=== PATIENT | female | born 1970 | race African-American/Black ===

== ENCOUNTER 2018-09-08 05:04 | Day surgery (SDC) | payer OTHER ==
[2018-09-06 15:17] VITALS: BMI 29.0
[2018-09-08] MEDS ORDERED: ACETAMINOPHEN 325 MG TABLET (FP) PO PRN (13:35)
[2018-09-08] MEDS ORDERED: IBUPROFEN 400 MG TABLET (FP) PO PRN (13:35)
[2018-09-08] MEDS ORDERED: oxyCODONE HCL 5 MG TABLET PO PRN ×2 (13:35→15:47)
[2018-09-08] MEDS ORDERED: ONDANSETRON 4 MG/2 ML VIAL IVPUSH PRN ×2 (13:36→15:47)
--- NOTE | 2018-09-08 13:38 | HP ---
Past Medical History - Admission History of Present Illness: 47 yo with hx/o menorrhagia, failed surgical management here for endometrial ablation - Advance Directives Advance Directives: Yes: Health Care Proxy - Smoking History Smoking history: Never smoked Aproximately how many cigarettes per day: 0 - Alcohol/Substance Use Hx Alcohol Use: No Home Medications - Allergies Allergies/Adverse Reactions: Allergies Allergy/AdvReac Type Severity Reaction Status Date / Time Penicillins Allergy "facial Verified 09/06/18 15:23 swelling" - Home Medications Home Medications: Ambulatory Orders Cyanocobalamin [Vitamin B12 -] 1,000 mcg PO DAILY 09/06/18 Labetalol HCl 100 mg PO BID 09/06/18 Lisinopril/Hydrochlorothiazide [Lisinopril-Hctz 20-25 mg Tab] 1 each PO DAILY Metformin HCl [Glucophage] 500 mg PO BID 09/06/18 Physical Exam - Maternity Vital Signs: Vital Signs Temperature 98.1 F 09/08/18 10:52 Pulse Rate 95 H 09/08/18 10:52 Respiratory Rate 18 09/08/18 10:52 Blood Pressure 155/99 09/08/18 10:52 O2 Sat by Pulse Oximetry (%) 100 09/08/18 10:52
[2018-09-08] MEDS ORDERED: SUCCINYLCHOLINE CHLORIDE 200 MG/10 ML VIAL ONE (13:49)
[2018-09-08] MEDS ORDERED: MIDAZOLAM HCL 2 MG/2 ML SINGLE DOSE VIAL ONE (13:49)
[2018-09-08] MEDS ORDERED: PROPOFOL 20 ML ONE (13:49)
[2018-09-08] MEDS ORDERED: DESFLURANE GAS 240 ML BOTTLE IH ONE (13:52)
[2018-09-08] MEDS ORDERED: DEXAMETHASONE SOD PHOSPHATE 4 MG/1 ML VIAL ONE (14:12)
--- NOTE | 2018-09-08 15:05 | HP ---
Admitting History and Physical - Admission History of Present Illness: 47 yo with history of menorrhagia, failed medical management, desiring surgical intervention. Limitations to Obtaining History: No Limitations - Past Medical History Cardiovascular: No: HTN Pulmonary: No: Asthma Gastrointestinal: No: GERD ...LMP: 08/27/18 Heme/Onc: Yes: Anemia, Sickle Cell Trait Endocrine: Yes: Diabetes Mellitus - Past Surgical History Additional Past Surgical History: delivery L shoulder surgery R knee surgery R bunionectomy and hammer toe repairs - Advance Directives Advance Directives: Yes: Health Care Proxy - Smoking History Smoking history: Never smoked Aproximately how many cigarettes per day: 0 - Alcohol/Substance Use Hx Alcohol Use: No - Social History History of Recent Travel: No Home Medications - Allergies Allergies/Adverse Reactions: Allergies Allergy/AdvReac Type Severity Reaction Status Date / Time Penicillins Allergy "facial Verified 09/06/18 15:23 swelling" - Home Medications Home Medications: Ambulatory Orders Cyanocobalamin [Vitamin B12 -] 1,000 mcg PO DAILY 09/06/18 Labetalol HCl 100 mg PO BID 09/06/18 Lisinopril/Hydrochlorothiazide [Lisinopril-Hctz 20-25 mg Tab] 1 each PO DAILY Metformin HCl [Glucophage] 500 mg PO BID 09/06/18 Family Disease History - Family Disease History Family History: Denies Review of Systems - Review of Systems Constitutional: reports: No Symptoms Neck: reports: No Symptoms Cardiovascular: reports: No Symptoms Gastrointestinal: reports: No Symptoms Genitourinary: reports: No Symptoms Musculoskeletal: reports: No Symptoms Endocrine: reports: No Symptoms Hematology/Lymphatic: reports: No Symptoms Psychiatric: reports: No Symptoms Physical Examination Vital Signs: Vital Signs Temperature 98.1 F 09/08/18 10:52 Pulse Rate 95 H 09/08/18 10:52 Respiratory Rate 18 09/08/18 10:52 Blood Pressure 155/99 09/08/18 10:52 O2 Sat by Pulse Oximetry (%) 100 09/08/18 10:52 Constitutional: Yes: Well Nourished, No Distress, Calm Cardiovascular: Yes: Regular Rate and Rhythm Respiratory: Yes: Regular, CTA Bilaterally Gastrointestinal: Yes: Normal Bowel Sounds, Soft Edema: No Neurological: Yes: Alert, Oriented Psychiatric: Yes: WNL Assessment/Plan 47 yo menorrhagia for surgical therapy 1. Consents reviewed and signed 2. preop labs reviewed 3. SCDs for DVT Prophylaxis 4. Will proceed to OR
[2018-09-08] MEDS ORDERED: DEXTROSE 50%-WATER - 25 GM/50 ML VIAL IVPUSH ONE (15:11)
[2018-09-08] MEDS ORDERED: DEXTROSE 50%-WATER 25 GM/50 ML DISP.SYRIN ONE (15:11)
--- NOTE | 2018-09-08 15:12 | OP ---
Operative Note - Note: Operative Date: 09/08/18 Pre-Operative Diagnosis: menorrhagia Operation: hysteroscopic hydrotherm ablation Findings: normal appearing endometrium, bilateral ostia identified; post-ablated endometrium at the end of procedure Post-Operative Diagnosis: Same as Pre-op Surgeon: Rosie Farooq Anesthesiologist/TECHNICAL CONSULTANT: Cleopatra Najera Estimated Blood Loss (mls): 2 Fluid Volume Replaced (mls): 1,000 Operative Report Dictated: Yes
[2018-09-08] MEDS ORDERED: LACTATED RINGERS SOLUTION 1,000 ML IV SCH (16:00)
--- NOTE | 2018-09-08 16:21 | OP ---
DATE OF OPERATION: 09/08/2018 ATTENDING PHYSICIAN: Walter Farooq MD PREOPERATIVE DIAGNOSIS: Menorrhagia. POSTOPERATIVE DIAGNOSIS: Menorrhagia. SURGERY: Hysteroscopic thermal ablation using Genesys HTA System. SURGEON: Walter Farooq MD ANESTHESIOLOGIST: Cleopatra Najera CRNA ESTIMATED BLOOD LOSS: 2 mL. INTRAVENOUS FLUID GIVEN: 1000. INDICATIONS: Patient is a 47-year-old with history of menorrhagia which failed medical therapy. She was counseled regarding medical and surgical therapy. She opted for surgical therapy. She was counseled regarding risks, benefits, alternatives, and complications of procedure including infection, bleeding, damage to surrounding organs such as bowel or bladder, uterine perforation or failure. She expressed understanding and was brought to the operating room. DESCRIPTION OF PROCEDURE: When anesthesia was found to be adequate, patient was prepped and draped in normal sterile fashion and placed in the dorsal lithotomy position using Vance stirrups. A weighted speculum was placed in the patient's vagina. Anterior vagina was retracted using a Davidson retractor. The anterior lip of the cervix was grasped using an Allis clamp. The cervix was gently dilated to accommodate a size 23 Tres dilator. The Genesys HTA System was inserted, and the uterus cavity and diagnostic hysteroscopy was performed. Normal appearing endometrium was noted. Bilateral ostia were identified. The Genesys HTA System was started, and ablation was initiated with direct visualization of the uterine cavity. No leaks were noted during the procedure. After cooldown period, a diagnostic hysteroscopy revealed adequately ablated endometrium. No leaks in the seal was noted. All instruments were removed from the patient's vagina. The patient was awoken from anesthesia, brought to recovery room in stable condition. WALTER FAROOQ M.D. [id number]
[2018-09-08] MEDS ORDERED: ONDANSETRON 4 MG/2 ML VIAL ONE (16:45)
[2018-09-08] MEDS: oxyCODONE HCL 5 MG TABLET PO PRN ×2 (17:15→17:55)
[2018-09-08] MEDS ORDERED: oxyCODONE HCL 5 MG TABLET ONE ×2 (17:16→17:52)
[2018-09-08 18:19] VITALS: BP 148/88; PULSE 79; TEMP 98.2
== END 2018-09-08 18:35 | disposition home or self-care (01) ==
LOC: JASU-SURG 05:04
PROVIDERS: ATTEND Obstetrics & Gynecology
PROC: 0U5B8ZZ Destruction of Endometrium, Via Natural or Artificial Opening Endoscopic (ICD-10-PCS; principal; 2018-09-08 13:00)
DX: N92.0 Excessive and frequent menstruation with regular cycle (principal); E11.9 Type 2 diabetes mellitus without complications; I10 Essential (primary) hypertension; D57.3 Sickle-cell trait; Z79.84 Long term (current) use of oral hypoglycemic drugs
CPT/HCPCS: 82962; 84703; 94760

== ENCOUNTER 2018-09-27 05:01 | Day surgery (SDC) | payer OTHER ==
[2018-09-24 08:32] VITALS: BMI 29.0
[2018-09-27] MEDS ORDERED: ACETAMINOPHEN 325 MG TABLET (FP) PO PRN (10:14)
[2018-09-27] MEDS ORDERED: IBUPROFEN 800 MG/8 ML IJ IVPB PRN ×2 (10:14→13:15)
--- NOTE | 2018-09-27 10:14 | HP ---
Admitting History and Physical - Admission History of Present Illness: 47 yo for permanent sterilization s/p recent HTA for menorrhagia Limitations to Obtaining History: No Limitations - Past Medical History Cardiovascular: Yes: HTN Pulmonary: No: Asthma Gastrointestinal: No: GERD ...LMP: 08/27/18 Heme/Onc: Yes: Anemia, Sickle Cell Trait Endocrine: Yes: Diabetes Mellitus - Past Surgical History Past Surgical History: Yes: (x3) Additional Past Surgical History: CD x 3 09/2018 - Endometrial ablation L shoulder surgery 06/2009 - R Knee arthroscopy R ft bunionectomy and hammer toe repair - Smoking History Smoking history: Never smoked Aproximately how many cigarettes per day: 0 - Alcohol/Substance Use Hx Alcohol Use: No - Social History History of Recent Travel: No Home Medications - Allergies Allergies/Adverse Reactions: Allergies Allergy/AdvReac Type Severity Reaction Status Date / Time Penicillins Allergy "facial Verified 09/27/18 10:03 swelling" - Home Medications Home Medications: Ambulatory Orders Cyanocobalamin [Vitamin B12 -] 1,000 mcg PO DAILY 09/06/18 Labetalol HCl 100 mg PO BID 09/06/18 Lisinopril/Hydrochlorothiazide [Lisinopril-Hctz 20-25 mg Tab] 1 each PO DAILY Metformin HCl [Glucophage] 500 mg PO BID 09/06/18 Family Disease History - Family Disease History Family History: Denies Review of Systems - Review of Systems Constitutional: reports: No Symptoms Cardiovascular: reports: No Symptoms Respiratory: reports: No Symptoms Gastrointestinal: reports: No Symptoms Breasts: reports: No Symptoms Reported Musculoskeletal: reports: No Symptoms Neurological: reports: No Symptoms Endocrine: reports: No Symptoms Psychiatric: reports: No Symptoms Physical Examination Vital Signs: Vital Signs Temperature 98.3 F 09/27/18 09:58 Pulse Rate 86 09/27/18 09:58 Respiratory Rate 18 09/27/18 09:58 Blood Pressure 147/89 09/27/18 09:58 O2 Sat by Pulse Oximetry (%) 99 09/27/18 10:01 Constitutional: Yes: Well Nourished, Calm Cardiovascular: Yes: Regular Rate and Rhythm Respiratory: Yes: Regular, CTA Bilaterally Gastrointestinal: Yes: Normal Bowel Sounds, Soft ...Rectal Exam: Yes: Deferred Musculoskeletal: Yes: WNL Extremities: Yes: WNL Integumentary: Yes: WNL Neurological: Yes: Alert, Oriented Assessment/Plan 47 yo for permanent sterilization 1. Consents reviewed and signed, risks including infection, bleeding, damage to surround organs such as bowel, bladder and ureterus discussed 2. SCDs for DVT Prophylaxis 3. Will proceed to OR
[2018-09-27] MEDS ORDERED: PROPOFOL 20 ML ONE ×2 (10:21)
[2018-09-27] MEDS ORDERED: MIDAZOLAM HCL 2 MG/2 ML SINGLE DOSE VIAL ONE (10:21)
[2018-09-27] MEDS ORDERED: BUPIVACAINE HCL/PF 0.5% (5MG/ML) 10 ML VIAL ONE (10:48)
[2018-09-27] MEDS ORDERED: ROCURONIUM BROMIDE 50 MG/5 ML VIAL ONE (11:20)
[2018-09-27] MEDS ORDERED: LIDOCAINE HCL/PF 2% SDV 5ML VIAL ONE (11:52)
[2018-09-27] MEDS ORDERED: CLINDAMYCIN 900 MG PREMIX BAG IVPB ONE (11:52)
[2018-09-27] MEDS ORDERED: CLINDAMYCIN PHOSPHATE 600 MG/4 ML VIAL ONE (11:52)
[2018-09-27] MEDS ORDERED: SUCCINYLCHOLINE CHLORIDE 200 MG/10 ML VIAL ONE (11:55)
[2018-09-27] MEDS ORDERED: NEOSTIGMINE METHYLSULFATE 0.5 MG/ML - 10 ML MDV ONE (12:32)
[2018-09-27] MEDS ORDERED: DEXAMETHASONE SOD PHOSPHATE 4 MG/1 ML VIAL ONE (12:33)
[2018-09-27] MEDS ORDERED: KETOROLAC TROMETHAMINE 30 MG/1 ML VIAL ONE (12:39)
--- NOTE | 2018-09-27 12:52 | OP ---
Operative Note - Note: Operative Date: 09/27/18 Pre-Operative Diagnosis: desiring permanent sterilization Operation: laparoscopic bilateral salpingectomy, lysis of extensive adhesions Findings: normal bilateral ovaries and fallopian tubes, severe dense adhesions from uterus , bilateral round ligaments, left ovary to anterior abdominal wall; adhesions of omentum to abdominal wall Post-Operative Diagnosis: Same as Pre-op Surgeon: Rosie Farooq Relay Record Clerk: Aravind Tapia Anesthesia: General Specimens Removed: bilateral fallopian tubes Estimated Blood Loss (mls): 2 Drains, Volume Out (mls): 240 (urine) Operative Report Dictated: Yes
[2018-09-27] MEDS ORDERED: oxyCODONE HCL 5 MG TABLET PO PRN ×2 (13:13)
[2018-09-27] MEDS ORDERED: ONDANSETRON 4 MG/2 ML VIAL IVPUSH PRN (13:13)
[2018-09-27] MEDS ORDERED: LACTATED RINGERS SOLUTION 1,000 ML IV SCH (13:15)
--- NOTE | 2018-09-27 14:03 | OP ---
DATE OF OPERATION: 09/27/2018 PREOPERATIVE DIAGNOSIS: Desiring permanent sterilization. POSTOPERATIVE DIAGNOSIS: Desiring permanent sterilization. SURGERY: Laparoscopic bilateral salpingectomy, lysis of adhesions. FINDINGS: Normal bilateral ovaries and fallopian tubes. Severe, dense adhesions in the uterus, bilateral round ligaments, and left ovary to anterior abdominal wall. Severe adhesions from omentum to anterior abdominal wall. SURGEON: Walter Burch MD CIVIL ENGINEERING PROJECT DESIGNER: Aravind Tapia MD ANESTHESIA: Dr. Camarena with general anesthesia. SPECIMENS REMOVED: Bilateral fallopian tubes. ESTIMATED BLOOD LOSS: 2 mL. URINE OUTPUT: 240 clear urine. INDICATIONS: The patient is a 47-year-old desiring permanent sterilization. She had a prior section x3. She desires surgical management. She was counseled regarding risks, benefits, alternatives, and complications of the procedure including infection, bleeding, damage surrounding organs such as the bowel, bladder, which is increased in her case given the history of multiple abdominal surgeries. She expressed understanding and was brought to the operating room. DESCRIPTION OF PROCEDURE: When anesthesia was found to be adequate, the patient was prepped and draped in the normal sterile fashion and placed in the dorsal lithotomy position using Vance stirrups. A weighted speculum was placed in the posterior vagina. The anterior vagina was retracted using a Davidson retractor. The anterior lip of the cervix was grasped using a single-tooth tenaculum. A HUMI uterine manipulator was placed in the intrauterine cavity. [place] was placed to gravity under sterile conditions. Attention was brought to the abdomen. A 5-mm incision was made into the umbilicus, and intraperitoneal placement was confirmed using a Veress needle. The abdomen was insufflated with carbon dioxide to an operating pressure of 15 mmHg. A 5-mm trocar was placed under direct visualization. Visualization of the abdominal cavity showed severe dense adhesions from the anterior abdominal wall to the uterus, bilateral fallopian tubes, the round ligaments, and right ovary. A 5-mm trocar was placed on the left lower quadrant under direct visualization. A 5-mm trocar was placed on the right lower quadrant under direct visualization. The left fallopian tube was identified, followed to fimbriated end. Adhesions were taken down using LigaSure. The left fallopian tube was transected using LigaSure and removed from the abdominal cavity and sent to Pathology. Attention was brought to the right fallopian tube. The ovary was freed from the anterior abdominal wall using the LigaSure, and the right fallopian tube was transected and ligated using LigaSure. This was removed from the abdominal cavity and brought to Pathology. Examination of all pedicles was found to be hemostatic. Irrigation was performed. The pneumoperitoneum was released. The pneumoperitoneum was released. The trocars were removed under direct visualization, and the skin was closed using Dermabond. All instruments were removed from the patient's abdomen. The patient tolerated the procedure well. Estimated blood loss 2 mL. The patient was brought to the recovery room in stable condition. WALTER CASTRO M.D. [id number]
[2018-09-27] MEDS ORDERED: ONDANSETRON 4 MG/2 ML VIAL ONE (14:29)
[2018-09-27 18:26] VITALS: BP 146/86; PULSE 82; TEMP 97.9
--- NOTE | 2018-09-30 11:41 | PATH ---
Surgical Pathology Report Patient Name: JENNA LAUREANO [facility]. Rec. #: [id number] /Age/Gender: 1970 (Age: 47) / F Account: [id number] Location: [facility] SUR[facility] Taken: 09/27/2018 Received: 09/28/2018 Reported: 09/30/2018 Physicians: Rosie Farooq Specimen(s) Received A: LEFT FALLOPIAN TUBE B: RIGHT FALLOPIAN TUBE Clinical History Encounter for sterilization Final Diagnosis A. LEFT FALLOPIAN TUBE, SALPINGECTOMY: FULL LUMINAL PORTION OF UNREMARKABLE FALLOPIAN TUBE, INCLUDING FIMBRIATED END. B. RIGHT FALLOPIAN TUBE, SALPINGECTOMY: FULL LUMINAL PORTION OF UNREMARKABLE FALLOPIAN TUBE, INCLUDING FIMBRIATED END. Electronically Signed Logan Vazquez M.D. Gross Description A. Received in formalin labeled "left fallopian tube," is a 5 cm in length fimbriated fallopian tube. The outer surface is hernandez-garcia and smooth. Sectioning reveals an unremarkable lumen. Loan Originator sections are submitted in 2 cassettes as follows: 1-fimbria; 2-cross sections of fallopian tube. B. Received in formalin labeled "right fallopian tube," are 2 portions of fallopian tube measuring 1.0 and 2.0 cm in length. The shorter portion displays attached fimbria. The outer surfaces are hernandez-garcia and smooth. Sectioning reveals unremarkable lumen. Loan Originator sections are submitted in 2 cassettes as follows: 1-fimbria; 2-cross sections of fallopian tube. /09/29/2018 saudi09/29/2018
== END 2018-09-27 17:35 | disposition home or self-care (01) ==
LOC: JASU-SURG 05:01
PROVIDERS: ATTEND Obstetrics & Gynecology
PROC: 0U574ZZ Destruction of Bilateral Fallopian Tubes, Percutaneous Endoscopic Approach (ICD-10-PCS; 2018-09-27)
PROC: 0DNW4ZZ Release Peritoneum, Percutaneous Endoscopic Approach (ICD-10-PCS; principal; 2018-09-27 10:30)
DX: Z30.2 Encounter for sterilization (principal); N73.6 Female pelvic peritoneal adhesions (postinfective); E11.9 Type 2 diabetes mellitus without complications; Z79.84 Long term (current) use of oral hypoglycemic drugs; I10 Essential (primary) hypertension; D64.9 Anemia, unspecified; E66.9 Obesity, unspecified
CPT/HCPCS: 36415; 82962; 84703; 86850; 86900; 86901; 88302-TC; 94760

== ENCOUNTER 2018-10-04 15:46 | Inpatient (IN) | payer OTHER ==
--- NOTE | 2018-10-04 16:07 | PDOC ---
History of Present Illness - General Chief Complaint: Nausea/Vomiting Stated Complaint: Nausea/Vomiting/PAIN Time Seen by Provider: 10/04/18 16:07 - History of Present Illness Initial Comments: 10/04/18 17:20 47f with pmh of hysteroscopic hydrotherm ablation and bilateral salpingectomy on 09/27/18 presents with fever, LRQ pain and mutiple episodes of non-bloody, watery diarrhea since 1am this morning, last one at 6am. She went to Dr. Farooq's office earlier today and got a pelvic exam that was negative. No hungry, didn't eat anything all day. Started feeling ill 3 days ago. She denies recent chest pain or shortness of breath. Past History - Past Medical History Allergies/Adverse Reactions: Allergies Allergy/AdvReac Type Severity Reaction Status Date / Time Penicillins Allergy "facial Verified 10/04/18 16:05 swelling" Home Medications: Ambulatory Orders Cyanocobalamin [Vitamin B12 -] 1,000 mcg PO DAILY 09/06/18 Labetalol HCl 100 mg PO BID 09/06/18 Lisinopril/Hydrochlorothiazide [Lisinopril-Hctz 20-25 mg Tab] 1 each PO DAILY Metformin HCl [Glucophage] 500 mg PO BID 09/06/18 Oxycodone HCl/Acetaminophen [Percocet 5-325 mg Tablet] 1 tab PO Q6H #5 tablet MDD 4 09/27/18 Anemia: Yes Asthma: No Cancer: No Cardiac Disorders: No CVA: No COPD: No CHF: No Dementia: No Diabetes: Yes GI Disorders: No Disorders: No HTN: Yes Hypercholesterolemia: No Liver Disease: No Seizures: No Thyroid Disease: No - Family Disease History Family Disease History: Diabetes: Father - Suicide/Smoking/Psychosocial Hx Smoking Status: No Smoking History: Never smoked Number of Cigarettes Smoked Daily: 0 Hx Alcohol Use: No Drug/Substance Use Hx: No Substance Use Type: None Hx Substance Use Treatment: No Review of Systems - Review of Systems Able to Perform ROS?: Yes Is the patient limited Turkmen proficient: No Constitutional: Yes: Chills, Fever, Loss of Appetite HEENTM: No: Symptoms Reported Respiratory: No: Symptoms reported Cardiac (ROS): No: Symptoms Reported ABD/GI: Yes: See HPI : No: Symptoms Reported Musculoskeletal: No: Symptoms Reported Integumentary: No: Symptoms Reported Neurological: No: Symptoms reported All Other Systems: Reviewed and Negative *Physical Exam - Physical Exam General Appearance: Yes: Nourished, Appropriately Dressed. No: Apparent Distress HEENT: positive: EOMI, HIEU, Normal ENT Inspection Respiratory/Chest: positive: Lungs Clear, Normal Breath Sounds. negative: Chest Tender, Respiratory Distress Cardiovascular: positive: Regular Rhythm, Regular Rate, S1, S2 Gastrointestinal/Abdominal: positive: Normal Bowel Sounds, Tender (lrq, ), Other (positive psoas and obturator signs. ). negative: Distended, Guarding, Rebound Musculoskeletal: positive: Normal Inspection Extremity: positive: Normal Capillary Refill, Normal Inspection, Normal Range of Motion Integumentary: positive: Normal Color, Dry, Warm, Diaphoresis Neurologic: positive: Fully Oriented, Alert, Normal Mood/Affect, Normal Response , Motor Strength / ED Treatment Course - LABORATORY CBC & Chemistry Diagram: 10/04/18 17:00 10/04/18 16:24 Medical Decision Making - Medical Decision Making 10/04/18 17:32 47 s/p pelvic surgery 1 week ago presenting with fever, diarrhea and LRQ pain SBO vs appendicitis vs intraabdominal abscess. Will treat fever with tylenol and fluids, obtain labs including lactate for possible obstruciton and Ct scan abdomen/pelvis with po and IV contrast 10/04/18 18:[address] read. Patient signed out to Dr. Stevenson. *DC/Admit/Observation/Transfer Diagnosis at time of Disposition: Fever, Abdominal pain - Referrals Referrals: Chad Lundberg [Primary Care Provider] - - Patient Instructions - Post Discharge Activity
[2018-10-04 16:10] VITALS: BMI 28.2
[2018-10-04] MEDS ORDERED: ACETAMINOPHEN 1000 MG/100 ML VIAL (NON FORMULARY) IVPB ONE (16:24)
[2018-10-04] MEDS ORDERED: SODIUM CHLORIDE 1,000 ML IV STA (16:24)
--- NOTE | 2018-10-04 17:18 | PDOC ---
Documentation entered by Arturo Dahl SCRIBE, acting as scribe for Gordo Thompson MD. Gordo Thompson MD: This documentation has been prepared by the Nabila correa Nirvannie, SCRIBE, under my direction and personally reviewed by me in its entirety. I confirm that the documentation accurately reflects all work, treatment, procedures, and medical decision making performed by me. Attending Attestation - Resident Resident Name: RiverFlorentino - ED Attending Attestation I have performed the following: I have examined & evaluated the patient, The case was reviewed & discussed with the resident, I agree w/resident's findings & plan - HPI HPI: 10/04/18 17:01 CC: RLQ pain HPI: The patient is a 47 year old female, with no significant past medical history, who presents to the emergency department with, RLQ pain. As per patient, she had surgery a week ago and was getting progressively better but, onsetting 3 days ago she fell ill. She endorses diarrhea today with associated RLQ abdominal pain, prompting her arrival to the ED. She denies recent chest pain or shortness of breath. Allergies: Penicillins. 10/04/18 17:02 - Physicial Exam PE: 10/04/18 17:01 Vitals: Triage vital signs reviewed General Appearance: No acute distress, well nourished, well developed Head: Atraumatic Neck: Supple; No nuchal rigidity Chest Wall: Nontender Cardiac: Regular rate and rhythm, no murmurs, no rubs, no gallops Lungs: Clear to auscultation bilateral, good air movement bilaterally Abdomen: +Tenderness to the RLQ. Soft, nondistended, normal bowel sounds Genitourinary: Exam deferred. Rectal: Exam deferred Skin: Warm and dry, no rashes or lesions, no rash, no petechiae Neuro: AOX3 Psych: Normal mood, normal affect - Medical Decision Making 10/04/18 17:02 47 year old female, with no significant past medical history, who presents to the emergency department with, RLQ pain. Plan is to: UA Labs Pain medication CT A&P 10/04/18 19:21 Status post salpingectomy now with fever and abdominal pain CAT scan pending Dr. Oliver to follow up CT and dispo
[2018-10-04 17:19] LABS: BASO % 0.6 % (0-2.0); HEMATOCRIT 27.9 % (32.4-45.2); HEMOGLOBIN 9.1 GM/dL (10.7-15.3); LYMPH % 12.1 % (8-40); MCH 23.8 pg (25.7-33.7); MCHC 32.7 g/dl (32.0-36.0); MEAN CELL VOLUME 72.6 fl (80-96); MEAN PLT VOLUME 8.3 fl (7.5-11.1); MONO % 14.7 % (3.8-10.2); NEUT % 72.6 % (42.8-82.8); PLATELET COUNT 384 K/MM3 (134-434); RBC 3.84 M/mm3 (3.60-5.2); RDW 17.3 % (11.6-15.6); WHITE BLOOD COUNT 7.6 K/mm3 (4.0-10.0)
[2018-10-04 17:34] LABS: INR 1.1 (0.83-1.09)
[2018-10-04 17:37] LABS: ACTIVATED PTT 31.6 SECONDS (25.2-36.5)
[2018-10-04] MEDS ORDERED: ACETAMINOPHEN INJECTION 100 ML IVPB ONE (17:41)
[2018-10-04 17:44] LABS: ALBUMIN 3.4 g/dl (3.4-5.0); ALK PHOS 64 U/L (45-117); ANION GAP 5 MMOL/L (8-16); BILIRUBIN,TOTAL 0.2 mg/dL (0.2-1); BLOOD UREA NITROGEN 6 mg/dL (7-18); CALCIUM 8.8 mg/dL (8.5-10.1); CHLORIDE 98 mmol/L (98-107); CO2 29 mmol/L (21-32); CREATININE 0.7 mg/dL (0.55-1.3); GLUCOSE,RANDOM 145 mg/dL (74-106); LIPASE 62 U/L (73-393); POTASSIUM 3.6 mmol/L (3.5-5.1); SGOT/AST 8 U/L (15-37); SGPT/ALT 19 U/L (13-61); SODIUM 132 mmol/L (136-145); TOT PROT 7.4 g/dl (6.4-8.2)
--- NOTE | 2018-10-04 19:33 | PDOC ---
*Physical Exam - Vital Signs Last Vital Signs Temp Pulse Resp BP Pulse Ox 99.1 F 111 H 18 162/93 98 10/04/18 16:50 10/04/18 16:50 10/04/18 16:50 10/04/18 16:50 10/04/18 16:50 - Physical Exam Comments: 10/05/18 00:10 General Appearance: Nourished. No Apparent Distress HEENT: No Pharyngeal Erythema, Tonsillar Exudate, Tonsillar Erythema Neck: No Cervical Lymphadenopathy Respiratory/Chest: Lungs Clear, Normal Breath Sounds. No Crackles, Rales, Rhonchi, Wheezing Cardiovascular: Regular Rhythm, Regular Rate. No Murmur, Gallops, Rubs Gastrointestinal/Abdominal: Normal Bowel Sounds, Soft. RLQ tenderness to palpation on exam. No Guarding, Rebound, Musculoskeletal: No CVA Tenderness Extremity: Normal Capillary Refill Integumentary: Normal Color, Dry, Warm Neurologic: Fully Oriented, Alert, Normal Mood/Affect, Normal Response, ED Treatment Course - LABORATORY CBC & Chemistry Diagram: 10/04/18 17:00 10/04/18 16:24 - ADDITIONAL ORDERS Additional order review: Laboratory Results 10/04/18 10/04/18 10/04/18 17:00 17:00 16:24 PT with INR 13.00 INR 1.10 H PTT (Actin FS) 31.6 Sodium 132 L Potassium 3.6 Chloride 98 Carbon Dioxide 29 Anion Gap 5 L BUN 6 L Creatinine 0.7 Creat Clearance w eGFR 90.49 Random Glucose 145 H Lactic Acid 1.0 Calcium 8.8 Total Bilirubin 0.2 AST 8 L ALT 19 Alkaline Phosphatase 64 Total Protein 7.4 Albumin 3.4 Lipase 62 L 10/04/18 17:00 RBC 3.84 MCV 72.6 L MCHC 32.7 RDW 17.3 H MPV 8.3 Neutrophils % 72.6 D Lymphocytes % 12.1 D Monocytes % 14.7 H D Eosinophils % 0.0 D Basophils % 0.6 - Medications Given in the ED: ED Medications Discontinued Medications Generic Name Dose Route Start Last Admin Trade Name Freq PRN Reason Stop Dose Admin Acetaminophen 1,000 mg 10/04/18 16:24 10/04/18 17:45 Ofirmev Injection - IVPB 10/04/18 16:25 1,000 mg ONCE ONE Administration Sodium Chloride 1,000 mls @ 1,000 mls/hr 10/04/18 16:24 10/04/18 17:45 Normal Saline - IV 10/04/18 17:23 1,000 mls/hr ASDIR STA Administration Progress Note - Progress Note Progress Note: The patient is a 47 year old female who is 7 days post op from a bilateral salpingetomy who presents for evaluation of abdominal pain with fever. Patient is pending lab results and CT abdomen/pelvis. Medical Decision Making - Medical Decision Making 10/04/18 22:[address] abdomen/pelvis demonstrates a small fluid collection in the right posterior pelvis which could represent post surgical changes vs. small developing abscess as read by our radiologist. The patient reports continued pain and continues to have RLQ abdominal pain on exam. We believe she requires admission for further management and monitoring. We will treat with cefepime here in the ED. We discussed the case with HOME ATTENDANT who requests medicine admission and they will consult. We discussed the case with the admitting team who accepted the patient for admission. *DC/Admit/Observation/Transfer Diagnosis at time of Disposition: Fever Qualifiers: Fever type: unspecified Qualified Code(s): R50.9 - Fever, unspecified Abdominal pain Qualifiers: Abdominal location: unspecified location Qualified Code(s): R10.9 - Unspecified abdominal pain - Discharge Dispostion Condition at time of disposition: Stable Decision to Admit order: Yes - Referrals - Patient Instructions - Post Discharge Activity
[2018-10-04 20:31] LABS: URINE APPEARANCE CLEAR; URINE BILIRUBIN NEGATIVE (NEGATIVE); URINE COLOR YELLOW; URINE GLUCOSE (UA) NEGATIVE (NEGATIVE); URINE KETONE TRACE (NEGATIVE); URINE LEUK ESTERASE NEGATIVE (NEGATIVE); URINE NITRITE NEGATIVE (NEGATIVE); URINE PROTEIN NEGATIVE (NEGATIVE); URINE UROBILINOGEN 0.2 mg/dL (0.2-1.0)
[2018-10-04] MEDS ORDERED: CEFEPIME HCL/D5W 1 GM/50 ML BAG IVPB ONE (21:23)
--- NOTE | 2018-10-04 21:47 | PN ---
Teaching Attending Note Name of Resident: Augusto Fam ATTENDING PHYSICIAN STATEMENT I saw and evaluated the patient. I reviewed the resident's note and discussed the case with the resident. I agree with the resident's findings and plan as documented. SUBJECTIVE: Seen and examined; please refer to resident note for further historical details. Briefly, this is a 47 y/o female who was sent here from Dr. Farooq' s office; she was tachycardic and febrile and has a suspected post-operative abdominal wall abscess seen on CT. She had on 09/27 a laparoscopic bilateral salpingectomy, lysis of extensive adhesions for sterilization and earlier in September she had a hysteroscopic hydrotherm ablation. Her [facility] is aware and recommended consultation, abx, admission and will see in the AM. Pain is localized to the RLQ but it radiates throughout. Nothing makes it better or worse, she hasn't had pain like this before. She hasn't seen anyone not mentioned for the aforementioned. Hemodynamically stable in the ER aside from mild tachycardia; fever noted. ER events noted. 10 sys ROS done and negative aside from HPI OBJECTIVE: VS, labs, imaging reviewed NAD, AAO, resting comfortably in bed NC AT EOMI PERRLA RRR s1/2 no mgr Lungs CTAB, w/ sym exp CT report shows a nonspecific 2cm dilation of the endometrial canal which is suspicious for fluid vs. endometrial thickening; US recommended for further examination. 2x1x1 small post op changes vs. developing abscess noted in R- lower abdomen. ASSESSMENT AND PLAN: 1) Possible abdominal wall abscess -Given recent instrumentation in a diabetic would be concerned for resistent organisms; will cover broadly with empiric vanc/aztreonam/flagyl and consult ID with Dr. Messina. Check ESR/CRP. Consult [facility]; further management per their service. -NPO, IVF 2) Endometrial Wall Changes -Noted on CT; recent procedural history noted. Will obtain US as recommended by radiology and followup with [facility] recommedations. 3) Ovarian Cyst -Followup OP
[2018-10-04] MEDS ORDERED: CEFEPIME 1 GM/100 ML BAG IVPB ONE (22:02)
[2018-10-04] MEDS ORDERED: VANCOMYCIN 1,000 MG in DEXTROSE 5%-WATER - 250 ML IVPB SCH (22:30)
--- NOTE | 2018-10-04 22:40 | HP ---
CHIEF COMPLAINT: fever, abd pain PCP: HISTORY OF PRESENT ILLNESS: Patient is a 47 y/o F w/ PMHx HTN, DM, 1 week s/p hysteroscopic ablation and b/ l salpingectomy p/w fever and lower abdominal pain over 3 days a/w multiple episodes watery diarrhea between 1 am and 6 am today. ROS otherwise negative. Was seen in [facility] Dr. Farooq's office earlier today, found to be febrile with negative pelvic exam, sent from there to ED. Febrile to 102 and tachycardic to [address] a/p revealed 2x1x1 cm fluid focus at R lower anterior pelvic wall significant for post-surgical changes vs early abscess development. Dr. Farooq was called from ED, requested admission, IV ABx, and consultation. Pt was given cefepime, 1L NS, and Ofirmev in ED. Pain had improved by time of encounter. Recent Travel: PAST MEDICAL HISTORY: As per HPI PAST SURGICAL HISTORY: As per HPI, additionally c-sections Social History: Smoking: Alcohol: Drugs: Family History: Allergies Penicillins Allergy (Verified 10/04/18 16:05) "facial swelling" HOME MEDICATIONS: Home Medications Medication Instructions Recorded Cyanocobalamin [Vitamin B12 -] 1,000 mcg PO DAILY 09/06/18 Labetalol HCl 100 mg PO BID 09/06/18 Lisinopril/Hydrochlorothiazide 1 each PO DAILY 09/06/18 [Lisinopril-Hctz 20-25 mg Tab] Metformin HCl [Glucophage] 500 mg PO BID 09/06/18 Oxycodone HCl/Acetaminophen 1 tab PO Q6H #5 tablet MDD 4 09/27/18 [Percocet 5-325 mg Tablet] REVIEW OF SYSTEMS As per HPI PHYSICAL EXAMINATION Vital Signs - 24 hr 10/04/18 10/04/18 10/04/18 16:06 16:50 19:30 Temperature 102 F H 99.1 F 100.3 F H Pulse Rate 113 H Pulse Rate [ 111 H 100 H Right Radial] Respiratory 18 18 18 Rate Blood Pressure 163/87 Blood Pressure 162/93 144/83 [Left Arm] O2 Sat by Pulse 97 98 100 Oximetry (%) GENERAL: A&Ox3, NAD HEENT: NC/AT, PERRLA, EOMI, MMM NECK: Normal range of motion, supple without lymphadenopathy, JVD, or masses. LUNGS: CTA b/l HEART: tachycardic no m/r/g ABDOMEN: +bs, soft, severe tenderness across lower abdomen EXTREMITIES: 2+ pulses, warm, well-perfused. No calf tenderness. No peripheral edema. NEUROLOGICAL: mobile web application developer, motor, sensory systems w/o focal deficit PSYCHIATRIC: Cooperative. Good eye contact. Appropriate mood and affect. SKIN: Warm, dry, normal turgor, no rashes or lesions noted, normal capillary refill. Laboratory Results - last 24 hr 10/04/18 10/04/18 10/04/18 16:24 17:00 17:00 WBC 7.6 RBC 3.84 Hgb 9.1 L Hct 27.9 L MCV 72.6 L MCH 23.8 L MCHC 32.7 RDW 17.3 H Plt Count 384 MPV 8.3 Absolute Neuts (auto) 5.5 Neutrophils % 72.6 D Lymphocytes % 12.1 D Monocytes % 14.7 H D Eosinophils % 0.0 D Basophils % 0.6 Nucleated RBC % 0 PT with INR INR PTT (Actin FS) Sodium 132 L Potassium 3.6 Chloride 98 Carbon Dioxide 29 Anion Gap 5 L BUN 6 L Creatinine 0.7 Creat Clearance w eGFR 90.49 Random Glucose 145 H Lactic Acid 1.0 Calcium 8.8 Total Bilirubin 0.2 AST 8 L ALT 19 Alkaline Phosphatase 64 Total Protein 7.4 Albumin 3.4 Lipase 62 L Urine Color Urine Appearance Urine pH Ur Specific [place] Urine Protein Urine Glucose (UA) Urine Ketones Urine Blood Urine Nitrite Urine Bilirubin Urine Urobilinogen Ur Leukocyte Esterase 10/04/18 10/04/18 17:00 20:08 WBC RBC Hgb Hct MCV MCH MCHC RDW Plt Count MPV Absolute Neuts (auto) Neutrophils % Lymphocytes % Monocytes % Eosinophils % Basophils % Nucleated RBC % PT with INR 13.00 INR 1.10 H PTT (Actin FS) 31.6 Sodium Potassium Chloride Carbon Dioxide Anion Gap BUN Creatinine Creat Clearance w eGFR Random Glucose Lactic Acid Calcium Total Bilirubin AST ALT Alkaline Phosphatase Total Protein Albumin Lipase Urine Color Yellow Urine Appearance Clear Urine pH 6.0 Ur Specific [place] 1.025 Urine Protein Negative Urine Glucose (UA) Negative Urine Ketones Trace H Urine Blood Negative Urine Nitrite Negative Urine Bilirubin Negative Urine Urobilinogen 0.2 Ur Leukocyte Esterase Negative ASSESSMENT/PLAN: 47 y/o F w/ PMHx HTN, DM, 1 week s/p hysteroscopic ablation and b/l salpingectomy p/w fever and lower abdominal pain over 3 days a/w multiple episodes watery diarrhea between 1 am and 6 am today #A -sepsis -CT a/p showing likely source is post-surgical abscess -HTN -DM -hyponatremia -anemia -angioedema penicillin allergy #P -Aztreonam, Flagyl, Vancomycin for pseudomonal, anaerobic, and MRSA coverage -OBGYN consulted, case d/w Dr. Farooq by ED -ID consulted (Dr. Messina) -f/u ESR/CRP -pre-op labs -TVUS, abd US -SSI, BGM -holding home anti-hypertensives given sepsis -LR @ 100 -monitor BMP, Mg, Phos -NPO -mechanical DVT PPx -full code -admit to med/surg Visit type - Emergency Visit Emergency Visit: Yes ED Registration Date: 10/04/18 Care time: The patient presented to the Emergency Department on the above date and was hospitalized for further evaluation of their emergent condition. - New Patient This patient is new to me today: Yes Date on this admission: 10/04/18 - Critical Care Critical Care patient: No
[2018-10-04] MEDS ORDERED: VANCOMYCIN 1,000 MG in DEXTROSE 5%-WATER - 250 ML IVPB ONE (22:45)
[2018-10-04] MEDS: LACTATED RINGERS SOLUTION 1,000 ML IV SCH (22:56)
[2018-10-04] MEDS ORDERED: traZODone HCL 50 MG TABLET (FP) PO ONE (23:33)
[2018-10-05] MEDS ORDERED: AZTREONAM 1 GM VIAL (RESTRICTED TO ID) ONE ×3 (00:27→18:07)
[2018-10-05] MEDS ORDERED: VANCOMYCIN 1 GRAM (PRE-DOCKED) 1,000 MG/250 ML BAG IVPB ONE (00:28)
[2018-10-05] MEDS ORDERED: morphine CARPU-JECT 2 MG/1 ML DISP.SYRIN IVPUSH ONE (01:51)
[2018-10-05] MEDS: AZTREONAM 1 GM in DEXTROSE 5%-WATER - 50 ML IVPB SCH ×5 (07:00→20:19)
[2018-10-05 07:01] LABS: BASO % 0.4 % (0-2.0); EOS % 0.2 % (0-4.5); HEMATOCRIT 27.6 % (32.4-45.2); LYMPH % 14.3 % (8-40); MCH 23.5 pg (25.7-33.7); MCHC 32.7 g/dl (32.0-36.0); MEAN CELL VOLUME 71.8 fl (80-96); MEAN PLT VOLUME 8.4 fl (7.5-11.1); MONO % 16.6 % (3.8-10.2); NEUT % 68.5 % (42.8-82.8); PLATELET COUNT 374 K/MM3 (134-434); RBC 3.84 M/mm3 (3.60-5.2); RDW 17.1 % (11.6-15.6); WHITE BLOOD COUNT 5.9 K/mm3 (4.0-10.0)
[2018-10-05 07:13] LABS: ANION GAP 8 MMOL/L (8-16); BLOOD UREA NITROGEN 6 mg/dL (7-18); CALCIUM 8.2 mg/dL (8.5-10.1); CHLORIDE 100 mmol/L (98-107); CO2 28 mmol/L (21-32); CREATININE 0.6 mg/dL (0.55-1.3); GLUCOSE,RANDOM 151 mg/dL (74-106); MAGNESIUM 1.7 mg/dL (1.8-2.4); PHOSPHOROUS 4.3 mg/dL (2.5-4.9); POTASSIUM 3.5 mmol/L (3.5-5.1); SODIUM 137 mmol/L (136-145)
--- NOTE | 2018-10-05 10:39 | CON.OBG ---
Consult Consult Specialty:: merchandise displayer Referred by:: Medicine - History of Present Illness Chief Complaint: [address] Farooq office with fever, abdominal pain and nausea History of Present Illness: POD#8 s/p LSC BTL and s/p Endometrial ablation on 09/08/18 Reports fevers since 10/02/18, abdominal pain, nausea, diarrhea since 10/03/18 Reports fevers/chills RLQ pain - sharp and crampy No epigastric pain, no incision pain no chest pain or SOB no flu symptoms no sick contacts - History Source History Provided By: Patient Limitations to Obtaining History: No Limitations - Past Medical History Cardio/Vascular: Yes: HTN Pulmonary: Yes: Other (allergic rhinitis) Reproductive: Yes: Other (Endometrial ablation 09/08/18; BTL 09/27/18; h/o abn PAP - last colpo 2013; nl PAPs since; h/o Mirena use and expulsion) ...LMP: 08/27/18 ...: No ...: 3 ...Para: 3 (c/s x 3) Heme/Onc: Yes: Sickle Cell Trait Endocrine: Yes: Diabetes Mellitus - Past Surgical History Past Surgical History: Yes: (x3 2005, 2007, 2013) Additional Surgical History: L shoulder surgery. R Knee surgery. R foot bunionectomy and hammer toe - Alcohol/Substance Use Hx Alcohol Use: No - Smoking History Smoking history: Never smoked Have you smoked in the past 12 months: No Aproximately how many cigarettes per day: 0 - Social History History of Recent Travel: No Home Medications - Allergies Allergies/Adverse Reactions: Allergies Allergy/AdvReac Type Severity Reaction Status Date / Time Penicillins Allergy "facial Verified 10/04/18 16:05 swelling" - Home Medications Home Medications: Ambulatory Orders Cyanocobalamin [Vitamin B12 -] 1,000 mcg PO DAILY 09/06/18 Labetalol HCl 100 mg PO BID 09/06/18 Lisinopril/Hydrochlorothiazide [Lisinopril-Hctz 20-25 mg Tab] 1 each PO DAILY Metformin HCl [Glucophage] 500 mg PO BID 09/06/18 Oxycodone HCl/Acetaminophen [Percocet 5-325 mg Tablet] 1 tab PO Q6H #5 tablet MDD 4 09/27/18 Family Disease History - Family Disease History Family History: Unremarkable Review of Systems - Review of Systems Constitutional: reports: Chills, Fever Gastrointestinal: reports: Abdominal Pain Physical Exam-[facility] Vital Signs: Vital Signs Temperature 100.3 F H 10/04/18 19:30 Pulse Rate 100 H 10/04/18 19:30 Respiratory Rate 18 10/04/18 19:30 Blood Pressure 144/83 10/04/18 19:30 O2 Sat by Pulse Oximetry (%) 100 10/04/18 19:30 Constitutional: Yes: Well Nourished, No Distress, Calm Eyes: Yes: WNL HENT: Yes: WNL Neck: Yes: WNL, Supple, Trachea Midline Cardiovascular: Yes: WNL Respiratory: Yes: CTA Bilaterally Gastrointestinal: Yes: WNL, Normal Bowel Sounds, Soft, Other (mild RLQ tenderness) Renal/: Yes: WNL External Genitalia: Yes: Normal Cervix: Yes: Cerv Motion Tenderness Uterus: Yes: Tender Adnexa: Tender: Right Musculoskeletal: Yes: WNL Extremities: Yes: WNL Integumentary: Yes: WNL Wound/Incision: Yes: Clean/Dry, Well Approximated Neurological: Yes: WNL, Alert, Oriented ...Motor Strength: WNL Psychiatric: Yes: WNL, Alert, Oriented Labs: CBC, BMP 10/05/18 05:30 10/05/18 05:20 Assessment/Plan 47yo s/p BTL and recent Endometrial ablation with fever, abdominal pain, thick, complex apearing endometrium 2cm normal WBC, but patient with DM Admit to [facility] with Dx of Endometritis and possible viral enteritis IV Flagyl till afebrile for 24hr follow UA and blood cultures control pain and fever with Tylenol follow ID consult
[2018-10-05] MEDS ORDERED: INSULIN (NOVOLOG) ASPART 100 UNITS/ML 10ML VIAL ONE (11:11)
--- NOTE | 2018-10-05 11:23 | HOSP ---
Subjective - Review of Symptoms Subjective: patient initially admitted to medical service Discussed case with INSTRUCTOR BUS TROLLEY AND TAXI who requests patient to be placed on her service and admitted to 3w Admitting noted of change Physical Examination Vital Signs: Vital Signs Temperature 100.3 F H 10/04/18 19:30 Pulse Rate 100 H 10/04/18 19:30 Respiratory Rate 18 10/04/18 19:30 Blood Pressure 144/83 10/04/18 19:30 O2 Sat by Pulse Oximetry (%) 100 10/04/18 19:30 Labs: CBC, BMP 10/05/18 05:30 10/05/18 05:20
[2018-10-05] MEDS: INSULIN SLIDING SCALE (NOVOLOG) 1 VIAL SQ SCH ×4 (11:44→23:32)
[2018-10-05] MEDS ORDERED: ACETAMINOPHEN 325 MG TABLET (FP) ONE (12:31)
--- NOTE | 2018-10-05 13:23 | CONSULT ---
Consultation: REQUESTING PROVIDER: CONSULT REQUEST: We have been asked to medically evaluate this patient. HISTORY OF PRESENT ILLNESS: Patient is a 47 year old female with history of hypertension, diabetes mellitus , recently s/p hysteroscopic endometrial ablation and bilateral salpingectomy ( 09/27) was sent from her OBGYN office (Dr. Farooq) with complaints of abdominal pain, subjective fevers, and chills. Patient was septic upon admission (febrile to 102F, tachycardic to 113BPM). CT abdomen and pelvis revealed nonspecific distention of ednometrial cavity, with 2 x 1 x1cm subcutaneous fluid focus abutting right anterior pelvic wall. REVIEW OF SYSTEMS: CONSTITUTIONAL: Admits: subjective fevers, chills, malaise Absent: diaphoresis, generalized weakness, weight change HEENT: Absent: rhinorrhea, nasal congestion, throat pain, throat swelling, difficulty swallowing, mouth swelling, ear pain, eye pain, visual changes CARDIOVASCULAR: Absent: chest pain, syncope, palpitations, irregular heart rate, lightheadedness , peripheral edema RESPIRATORY: Absent: cough, shortness of breath, dyspnea with exertion, orthopnea, wheezing, stridor, hemoptysis GASTROINTESTINAL: AdmitsL abdominal pain, nausea, diarrhea Absent: vomiting, melena, hematochezia GENITOURINARY: Absent: dysuria, frequency, urgency, hesitancy, hematuria, flank pain, genital pain MUSCULOSKELETAL: Absent: myalgia, arthralgia, joint swelling, back pain, neck pain SKIN: Absent: rash, itching, pallor HEMATOLOGIC/IMMUNOLOGIC: Absent: easy bleeding, easy bruising, lymphadenopathy, frequent infections ENDOCRINE: Absent: unexplained weight gain, unexplained weight loss, heat intolerance, cold intolerance NEUROLOGIC: Absent: headache, focal weakness or paresthesias, dizziness, unsteady gait, seizure, mental status changes, bladder or bowel incontinence PSYCHIATRIC: Absent: anxiety, depression, suicidal or homicidal ideation, hallucinations. PHYSICAL EXAMINATION Vital Signs - 24 hr 10/04/18 10/04/18 10/04/18 16:06 16:50 19:30 Temperature 102 F H 99.1 F 100.3 F H Pulse Rate 113 H Pulse Rate [ 111 H 100 H Right Radial] Respiratory 18 18 18 Rate Blood Pressure 163/87 Blood Pressure 162/93 144/83 [Left Arm] Blood Pressure [Right Arm] O2 Sat by Pulse 97 98 100 Oximetry (%) 10/05/18 10/05/18 07:15 11:25 Temperature 100.3 F H 102.2 F H Pulse Rate Pulse Rate [ 105 H 112 H Right Radial] Respiratory 18 18 Rate Blood Pressure Blood Pressure [Left Arm] Blood Pressure 130/79 145/78 [Right Arm] O2 Sat by Pulse 97 98 Oximetry (%) GENERAL: Awake, alert, and fully oriented, in mild distress. HEAD: Normocephalic, atraumatic. EYES: PERRLA, EOMI, sclera anicteric, conjunctiva clear. EARS, NOSE, THROAT: Oropharynx clear without exudates. Moist mucous membranes. NECK: Supple without lymphadenopathy, or JVD. LUNGS: Good inspiratory effort. Breath sounds equal. CTA B/L. No wheezes, and no crackles. No accessory muscle use. HEART: Regular rate and rhythm, normal S1 and S2 without murmur, rub or gallop. ABDOMEN: Soft, nondistended, diffusely tender to palpation, worst at RLQ. Hypoactive bowel sounds, no guarding, no rebound, no masses. No hepatomegaly palpated or percussed. MUSCULOSKELETAL: Normal range of motion at all joints. No bony deformities or tenderness. UPPER EXTREMITIES: 2+ radial pulses, warm, well-perfused. LOWER EXTREMITIES: 2+ dorsalis pedis pulses, warm, well-perfused. No calf tenderness. No peripheral edema bilaterally. NEUROLOGICAL: Cranial nerves II-XII intact. Normal speech. No gross focal deficits. PSYCHIATRIC: Cooperative. Good eye contact. Appropriate mood and affect upon my encounter. SKIN: Warm, dry. Abdominal surgical incisions noted clean, dry, intact, well healing. Laboratory Results - last 24 hr 10/04/18 10/04/18 10/04/18 16:24 17:00 17:00 WBC 7.6 RBC 3.84 Hgb 9.1 L Hct 27.9 L MCV 72.6 L MCH 23.8 L MCHC 32.7 RDW 17.3 H Plt Count 384 MPV 8.3 Absolute Neuts (auto) 5.5 Neutrophils % 72.6 D Lymphocytes % 12.1 D Monocytes % 14.7 H D Eosinophils % 0.0 D Basophils % 0.6 Nucleated RBC % 0 ESR PT with INR INR PTT (Actin FS) Sodium 132 L Potassium 3.6 Chloride 98 Carbon Dioxide 29 Anion Gap 5 L BUN 6 L Creatinine 0.7 Creat Clearance w eGFR 90.49 POC Glucometer Random Glucose 145 H Lactic Acid 1.0 Calcium 8.8 Phosphorus Magnesium Total Bilirubin 0.2 AST 8 L ALT 19 Alkaline Phosphatase 64 C-Reactive Protein Total Protein 7.4 Albumin 3.4 Lipase 62 L Serum , Qual Urine Color Urine Appearance Urine pH Ur Specific [place] Urine Protein Urine Glucose (UA) Urine Ketones Urine Blood Urine Nitrite Urine Bilirubin Urine Urobilinogen Ur Leukocyte Esterase Blood Type Antibody Screen 10/04/18 10/04/18 10/04/18 17:00 20:08 22:16 WBC RBC Hgb Hct MCV MCH MCHC RDW Plt Count MPV Absolute Neuts (auto) Neutrophils % Lymphocytes % Monocytes % Eosinophils % Basophils % Nucleated RBC % ESR PT with INR 13.00 INR 1.10 H PTT (Actin FS) 31.6 Sodium Potassium Chloride Carbon Dioxide Anion Gap BUN Creatinine Creat Clearance w eGFR POC Glucometer Random Glucose Lactic Acid Calcium Phosphorus Magnesium Total Bilirubin AST ALT Alkaline Phosphatase C-Reactive Protein Total Protein Albumin Lipase Serum , Qual Negative Urine Color Yellow Urine Appearance Clear Urine pH 6.0 Ur Specific [place] 1.025 Urine Protein Negative Urine Glucose (UA) Negative Urine Ketones Trace H Urine Blood Negative Urine Nitrite Negative Urine Bilirubin Negative Urine Urobilinogen 0.2 Ur Leukocyte Esterase Negative Blood Type Antibody Screen 10/04/18 10/04/18 10/05/18 22:16 22:16 05:20 WBC RBC Hgb Hct MCV MCH MCHC RDW Plt Count MPV Absolute Neuts (auto) Neutrophils % Lymphocytes % Monocytes % Eosinophils % Basophils % Nucleated RBC % ESR 31 H PT with INR INR PTT (Actin FS) Sodium 137 Potassium 3.5 Chloride 100 Carbon Dioxide 28 Anion Gap 8 BUN 6 L Creatinine 0.6 Creat Clearance w eGFR 108.11 POC Glucometer Random Glucose 151 H Lactic Acid Calcium 8.2 L Phosphorus 4.3 Magnesium 1.7 L Total Bilirubin AST ALT Alkaline Phosphatase C-Reactive Protein 2.5 H Total Protein Albumin Lipase Serum , Qual Urine Color Urine Appearance Urine pH Ur Specific [place] Urine Protein Urine Glucose (UA) Urine Ketones Urine Blood Urine Nitrite Urine Bilirubin Urine Urobilinogen Ur Leukocyte Esterase Blood Type Antibody Screen 10/05/18 10/05/18 10/05/18 05:30 08:30 10:55 WBC 5.9 RBC 3.84 Hgb 9.0 L Hct 27.6 L MCV 71.8 L MCH 23.5 L MCHC 32.7 RDW 17.1 H Plt Count 374 MPV 8.4 Absolute Neuts (auto) 4.0 Neutrophils % 68.5 Lymphocytes % 14.3 Monocytes % 16.6 H Eosinophils % 0.2 D Basophils % 0.4 Nucleated RBC % 0 ESR PT with INR INR PTT (Actin FS) Sodium Potassium Chloride Carbon Dioxide Anion Gap BUN Creatinine Creat Clearance w eGFR POC Glucometer 158 Random Glucose Lactic Acid Calcium Phosphorus Magnesium Total Bilirubin AST ALT Alkaline Phosphatase C-Reactive Protein Total Protein Albumin Lipase Serum , Qual Urine Color Urine Appearance Urine pH Ur Specific [place] Urine Protein Urine Glucose (UA) Urine Ketones Urine Blood Urine Nitrite Urine Bilirubin Urine Urobilinogen Ur Leukocyte Esterase Blood Type A POSITIVE Antibody Screen Negative Active Medications Generic Name Dose Route Start Last Admin Trade Name Freq PRN Reason Stop Dose Admin Acetaminophen 650 mg 10/05/18 12:30 Tylenol - PO Q4H PRN FEVER Metronidazole 500 mg in 100 mls @ 100 mls/hr 10/04/18 22:30 10/05/18 11:45 Flagyl 500mg Premixed Ivpb - IVPB 100 mls/hr Q8H-IV JAIDEN Administration Lactated Ringer's 1,000 mls @ 100 mls/hr 10/04/18 22:30 10/04/18 22:56 Lactated Ringers Solution IV 100 mls/hr ASDIR JAIDEN Administration Insulin Aspart 1 vial 10/05/18 07:00 10/05/18 11:46 Novolog Vial Sliding Scale - SQ 2 units ACHS JAIDEN Administration Protocol ASSESSMENT/PLAN: Patient is a 47 year old female with history of hypertension, diabetes mellitus , recently s/p hysteroscopic endometrial ablation and bilateral salpingectomy ( 09/27) was sent from her OBGYN office (Dr. Farooq) with complaints of abdominal pain, subjective fevers, and chills. Sepsis secondary to endometritis -Patient is s/p hysteroscopic endometrial ablation and bilateral salpingectomy -CT abdomen and pelvis revealed nonspecific distention of ednometrial cavity, with 2 x 1 x1cm subcutaneous fluid focus abutting right anterior pelvic wall. -Transvaginal US shows bilateral ovarian cysts, complex endometrial fluid. -Abdominal US shows complex density within right lower abdomen 2.5 x 1.5 cm concerning for hematoma vs. abscess. -Flagyl 500mg IV Q8 hours -Aztreonam 1 gram IV Q8 hours -Acetaminophen 650mg PO Q4 hours PRN -ID consult (Dr. Messina) appreciated -Follow blood cultures -Follow urine cultures -IV lactated ringer's at 100mL/ hour -OBGYN recommendations (Dr. Varela) appreciated. Diabetes mellitus -Insulin sliding scale ACHS -Fingerstick blood glucose monitoring ACHS Hypertension -Reinstate Metoprolol 25mg PO BID Microcytic anemia -Hb 9.0, HCt 27.6, MCV 71.8 -Follow Fe, TIBC, Ferritin -Follow CBC FEN -IV lactated ringer's at 100mL/ hour -Follow CMP -Diabetic diet Prophylaxis -Heparin 5000u subq TID Disposition: We will continue to follow the patient. Thank you for this consultative opportunity. Visit type - Emergency Visit Emergency Visit: Yes ED Registration Date: 10/04/18 Care time: The patient presented to the Emergency Department on the above date and was hospitalized for further evaluation of their emergent condition. - New Patient This patient is new to me today: Yes Date on this admission: 10/05/18 - Critical Care Critical Care patient: No
[2018-10-05] MEDS ORDERED: metroNIDAZOLE 250 MG TABLET PO SCH (14:00)
--- NOTE | 2018-10-05 14:16 | EKG ---
Test Reason : Blood Pressure : / mmHG Vent. Rate : 100 BPM Atrial Rate : 100 BPM P-R Int : 152 ms QRS Dur : 084 ms QT Int : 354 ms P-R-T Axes : 055 000 -02 degrees QTc Int : 456 ms NORMAL SINUS RHYTHM MODERATE VOLTAGE CRITERIA FOR LVH, MAY BE NORMAL VARIANT CANNOT RULE OUT SEPTAL INFARCT , AGE UNDETERMINED ABNORMAL ECG NO PREVIOUS ECGS AVAILABLE Confirmed by MD GOKUL, LESLYE ([id number]) on 10/05/2018 2:15:48 PM Referred By: Confirmed By:LESLYE HODGSON MD
--- NOTE | 2018-10-05 14:29 | CON.ID ---
Consult Consult Specialty:: infectious diseases - Past Medical History Cardio/Vascular: Yes: HTN ...LMP: 08/27/18 Endocrine: Yes: Diabetes Mellitus - Past Surgical History Past Surgical History: Yes: (x3) - Alcohol/Substance Use Hx Alcohol Use: No - Smoking History Smoking history: Never smoked Aproximately how many cigarettes per day: 0 - Social History History of Recent Travel: No Home Medications - Allergies Allergies/Adverse Reactions: Allergies Allergy/AdvReac Type Severity Reaction Status Date / Time Penicillins Allergy "facial Verified 10/04/18 16:05 swelling" - Home Medications Home Medications: Ambulatory Orders Cyanocobalamin [Vitamin B12 -] 1,000 mcg PO DAILY 09/06/18 Labetalol HCl 100 mg PO BID 09/06/18 Lisinopril/Hydrochlorothiazide [Lisinopril-Hctz 20-25 mg Tab] 1 each PO DAILY Metformin HCl [Glucophage] 500 mg PO BID 09/06/18 Oxycodone HCl/Acetaminophen [Percocet 5-325 mg Tablet] 1 tab PO Q6H #5 tablet MDD 4 09/27/18 Physical Exam Vital Signs: Vital Signs Temperature 98.7 F 10/05/18 13:40 Pulse Rate 100 H 10/05/18 13:40 Respiratory Rate 17 10/05/18 13:40 Blood Pressure 133/77 10/05/18 13:40 O2 Sat by Pulse Oximetry (%) 98 10/05/18 13:40 Labs: CBC, BMP 10/05/18 05:30 10/05/18 05:20
[2018-10-05] MEDS ORDERED: DEXTROSE 5%-WATER - 50 ML IVPB ONE ×2 (16:20→18:07)
--- NOTE | 2018-10-05 17:06 | PN ---
Teaching Attending Note Name of Resident: Matias Recio ATTENDING PHYSICIAN STATEMENT I saw and evaluated the patient. I reviewed the resident's note and discussed the case with the resident. I agree with the resident's findings and plan as documented. SUBJECTIVE:c/o abdominal pain which improves with pain medication. +chills with earlier recorded fever. denies CP, SOB, N/V/C/D no vaginal discharge or bleeding. tolerating diet OBJECTIVE: Last Vital Signs Temp Pulse Resp BP Pulse Ox 98.7 F 100 H 17 133/77 98 10/05/18 13:40 10/05/18 13:40 10/05/18 13:40 10/05/18 13:40 10/05/18 13:40 General NAD CV S1 S2 RRR no murmur/rub/gallop Lungs CTA B/L no wheezing/rales/rhonchi Abdomen soft +RLQ and suprapubic tenderness ASSESSMENT AND PLAN: 47yo F wtih PMH DM and HTN with recent B/L salpingectomy came to the ER after being found febrile and tachycardic at [facility] follow up and found to be septic 1. Sepsis due to presumed endometritis- spoke with [facility] and not concerned with reported fluid collection in RLQ, stating this is likely fluid tracking and post -surgical changes from procedure. on her exam appears pt may have endometritis. Tm 102 with tachycardia and leukocytosis. on broad spectrum abx aztreonam and flagyl. (PCN allergy noted). also received vanco in the ER. Bcx obtained after abx initiated. cont IVF and pain control. ID and [facility] on board. F/U Cx 2. HTN- currently normotensive. will re-start metoprolol as should not hold betablocker abruptly. hold other antihypertensives 3. DM- hold oral agents. BGM and ISS 4. microcytic anemia- no signs of bleeding. check iron studies. Hgb stable. no indication for transfusion 5. DVT ppx- will start hep sq as no plans for intervention and no signs of bleeding
[2018-10-05] MEDS: ACETAMINOPHEN 325 MG TABLET (FP) PO PRN (18:16)
[2018-10-05] MEDS: METOPROLOL TARTRATE 25 MG TABLET (FP) PO SCH (23:29)
[2018-10-05] MEDS: HEPARIN NA (PORCINE) 5,000 UNITS/ML 1ML VIAL SQ SCH (23:29)
[2018-10-06] MEDS: ACETAMINOPHEN 325 MG TABLET (FP) PO PRN ×3 (01:38→19:22)
[2018-10-06] MEDS: AZTREONAM 1 GM in DEXTROSE 5%-WATER - 50 ML IVPB SCH ×3 (04:00→18:08)
[2018-10-06] MEDS: HEPARIN NA (PORCINE) 5,000 UNITS/ML 1ML VIAL SQ SCH ×4 (05:22→23:38)
[2018-10-06] MEDS: LACTATED RINGERS SOLUTION 1,000 ML IV SCH ×3 (05:55→22:51)
[2018-10-06] MEDS: INSULIN SLIDING SCALE (NOVOLOG) 1 VIAL SQ SCH ×4 (06:06→22:55)
[2018-10-06 07:14] LABS: HEMATOCRIT 28.4 % (32.4-45.2); HEMOGLOBIN 9.1 GM/dL (10.7-15.3); MCH 23.2 pg (25.7-33.7); MCHC 32.2 g/dl (32.0-36.0); MEAN CELL VOLUME 72.1 fl (80-96); MEAN PLT VOLUME 8.1 fl (7.5-11.1); PLATELET COUNT 377 K/MM3 (134-434); RBC 3.93 M/mm3 (3.60-5.2); RDW 17.2 % (11.6-15.6); WHITE BLOOD COUNT 5.7 K/mm3 (4.0-10.0)
[2018-10-06 07:29] LABS: ALBUMIN 3.1 g/dl (3.4-5.0); ALK PHOS 58 U/L (45-117); ANION GAP 7 MMOL/L (8-16); BILIRUBIN,TOTAL 0.2 mg/dL (0.2-1); BLOOD UREA NITROGEN 7 mg/dL (7-18); CALCIUM 8.5 mg/dL (8.5-10.1); CHLORIDE 100 mmol/L (98-107); CO2 29 mmol/L (21-32); CREATININE 0.7 mg/dL (0.55-1.3); GLUCOSE,RANDOM 153 mg/dL (74-106); POTASSIUM 3.5 mmol/L (3.5-5.1); SGOT/AST 7 U/L (15-37); SGPT/ALT 17 U/L (13-61); SODIUM 136 mmol/L (136-145)
--- NOTE | 2018-10-06 08:24 | PN ---
Physical Exam: SUBJECTIVE: Patient seen and examined at bedside this morning. She endorses subjective fevers and was febrile to Tmax 100.7F overnight. Patient continues to endorse diffuse abdominal pain, with numerous episodes of liquid brown diarrhea without kvng blood. OBJECTIVE: Vital Signs Period Temp Pulse Resp BP Sys/Barnard Pulse Ox Last 24 Hr 98.7 F-102.2 F 93-114 17-20 133-155/70-79 98-98 GENERAL: Awake, alert, and fully oriented, in mild distress. HEAD: Normocephalic, atraumatic. EYES: PERRLA, EOMI, sclera anicteric, conjunctiva clear. EARS, NOSE, THROAT: Oropharynx clear without exudates. Moist mucous membranes. NECK: Supple without lymphadenopathy, or JVD. LUNGS: Good inspiratory effort. Breath sounds equal. CTA B/L. No wheezes, and no crackles. No accessory muscle use. HEART: Regular rate and rhythm, normal S1 and S2 without murmur, rub or gallop. ABDOMEN: Soft, nondistended, diffusely tender to palpation, worst at RLQ. Hypoactive bowel sounds, no guarding, no rebound, no masses. No hepatomegaly palpated or percussed. MUSCULOSKELETAL: Normal range of motion at all joints. No bony deformities or tenderness. UPPER EXTREMITIES: 2+ radial pulses, warm, well-perfused. LOWER EXTREMITIES: 2+ dorsalis pedis pulses, warm, well-perfused. No calf tenderness. No peripheral edema bilaterally. NEUROLOGICAL: Cranial nerves II-XII intact. Normal speech. No gross focal deficits. PSYCHIATRIC: Cooperative. Good eye contact. Appropriate mood and affect upon my encounter. SKIN: Warm, dry. Abdominal surgical incisions noted clean, dry, intact, well healing. Laboratory Results - last 24 hr 10/05/18 10/05/18 10/05/18 08:30 10:55 17:48 WBC RBC Hgb Hct MCV MCH MCHC RDW Plt Count MPV Sodium Potassium Chloride Carbon Dioxide Anion Gap BUN Creatinine Creat Clearance w eGFR POC Glucometer 158 112 Random Glucose Calcium Total Bilirubin AST ALT Alkaline Phosphatase Total Protein Albumin Blood Type A POSITIVE Antibody Screen Negative 10/05/18 10/06/18 10/06/18 23:32 06:00 06:00 WBC 5.7 RBC 3.93 Hgb 9.1 L Hct 28.4 L MCV 72.1 L MCH 23.2 L MCHC 32.2 RDW 17.2 H Plt Count 377 MPV 8.1 Sodium 136 Potassium 3.5 Chloride 100 Carbon Dioxide 29 Anion Gap 7 L BUN 7 Creatinine 0.7 Creat Clearance w eGFR 90.49 POC Glucometer 153 Random Glucose 153 H Calcium 8.5 Total Bilirubin 0.2 AST 7 L ALT 17 Alkaline Phosphatase 58 Total Protein 7.0 Albumin 3.1 L Blood Type Antibody Screen 10/06/18 06:01 WBC RBC Hgb Hct MCV MCH MCHC RDW Plt Count MPV Sodium Potassium Chloride Carbon Dioxide Anion Gap BUN Creatinine Creat Clearance w eGFR POC Glucometer 159 Random Glucose Calcium Total Bilirubin AST ALT Alkaline Phosphatase Total Protein Albumin Blood Type Antibody Screen Active Medications Generic Name Dose Route Start Last Admin Trade Name Freq PRN Reason Stop Dose Admin Acetaminophen 650 mg 10/05/18 12:30 10/06/18 01:38 Tylenol - PO 650 mg Q4H PRN Administration FEVER Heparin Sodium (Porcine) 5,000 unit 10/05/18 22:00 10/06/18 05:22 Heparin - SQ Not Given TID [facility] Metronidazole 500 mg in 100 mls @ 100 mls/hr 10/04/18 22:30 10/06/18 04:42 Flagyl 500mg Premixed Ivpb - IVPB 100 mls/hr Q8H-IV [facility] Administration Lactated Ringer's 1,000 mls @ 100 mls/hr 10/04/18 22:30 10/06/18 05:55 Lactated Ringers Solution IV 10/06/18 22:30 Not Given ASDIR [facility] Aztreonam 1 gm/ Dextrose 50 mls @ 100 mls/hr 10/05/18 14:30 10/06/18 04:00 IVPB 100 mls/hr Q8H-IV [facility] Administration Protocol Insulin Aspart 1 vial 10/05/18 07:00 10/06/18 06:06 Novolog Vial Sliding Scale - SQ Not Given ACHS [facility] Protocol Metoprolol Tartrate 25 mg 10/05/18 22:00 10/05/18 23:29 Lopressor - PO 25 mg BID [facility] Administration IMAGING -CT abdomen and pelvis revealed nonspecific distention of ednometrial cavity, with 2 x 1 x1cm subcutaneous fluid focus abutting right anterior pelvic wall. -Transvaginal US shows bilateral ovarian cysts, complex endometrial fluid. -Abdominal US shows complex density within right lower abdomen 2.5 x 1.5 cm concerning for hematoma vs. abscess. ASSESSMENT/PLAN: Patient is a 47 year old female with history of hypertension, diabetes mellitus , recently s/p hysteroscopic endometrial ablation and bilateral salpingectomy ( 09/27) was sent from her OBGYN office (Dr. Farooq) with complaints of abdominal pain, subjective fevers, and chills. Sepsis secondary to endometritis -Patient is s/p hysteroscopic endometrial ablation and bilateral salpingectomy -Flagyl 500mg IV Q8 hours (day #2) -Aztreonam 1 gram IV Q8 hours (day #2) -Acetaminophen 650mg PO Q4 hours PRN -ID consult (Dr. Messina) appreciated -Blood cultures negative for growth at 24 hours -Urine cultures growing Group B streptococcus, lactose fermenting gram negative bacilli. Follow sensitivities -IV lactated ringer's at 100mL/ hour -OBGYN recommendations (Dr. Farooq) appreciated. Diabetes mellitus -Insulin sliding scale ACHS -Fingerstick blood glucose monitoring ACHS Hypertension -Metoprolol 25mg PO BID -Follow vital signs closely Microcytic anemia -Stable. Hb 9.1, HCt 28.4, MCV 72.1 -Follow Fe, TIBC, Ferritin -Follow CBC FEN -IV lactated ringer's at 100mL/ hour -Follow CMP -Diabetic diet Prophylaxis -Heparin 5000u subq TID Disposition: We will continue to follow the patient. Thank you for this consultative opportunity. Visit type - Emergency Visit Emergency Visit: Yes ED Registration Date: 10/04/18 Care time: The patient presented to the Emergency Department on the above date and was hospitalized for further evaluation of their emergent condition. - New Patient This patient is new to me today: No - Critical Care Critical Care patient: No - Discharge Referral Referred to [facility] Med P.C.: No
[2018-10-06] MEDS ORDERED: AZTREONAM 1 GM VIAL (RESTRICTED TO ID) ONE ×2 (10:09→17:58)
[2018-10-06] MEDS ORDERED: DEXTROSE 5%-WATER - 50 ML IVPB ONE ×2 (10:09→17:58)
[2018-10-06] MEDS: METOPROLOL TARTRATE 25 MG TABLET (FP) PO SCH ×4 (10:12→23:09)
--- NOTE | 2018-10-06 12:20 | PN ---
Progress Note, Physician History of Present Illness: feels better still with some abd pain spiked a fever otherwise comfortable - Current Medication List Current Medications: Active Medications Acetaminophen (Tylenol -) 650 mg PO Q4H PRN PRN Reason: FEVER Last Admin: 10/06/18 11:13 Dose: 650 mg Heparin Sodium (Porcine) (Heparin -) 5,000 unit SQ TID [facility] Last Admin: 10/06/18 05:22 Dose: Not Given Metronidazole (Flagyl 500mg Premixed Ivpb -) 500 mg in 100 mls @ 100 mls/hr IVPB Q8H-IV [facility] Last Admin: 10/06/18 10:14 Dose: 100 mls/hr Lactated Ringer's (Lactated Ringers Solution) 1,000 mls @ 100 mls/hr IV ASDIR [facility] Stop: 10/06/18 22:30 Last Admin: 10/06/18 11:05 Dose: 100 mls/hr Aztreonam 1 gm/ Dextrose 50 mls @ 100 mls/hr IVPB Q8H-IV [facility]; Protocol Last Admin: 10/06/18 10:12 Dose: 100 mls/hr Insulin Aspart (Novolog Vial Sliding Scale -) 1 vial SQ ACHS [facility]; Protocol Last Admin: 10/06/18 11:20 Dose: Not Given Metoprolol Tartrate (Lopressor -) 25 mg PO BID [facility] Last Admin: 10/06/18 10:12 Dose: 25 mg - Objective Vital Signs: Vital Signs Temperature 99.3 F 10/06/18 06:00 Pulse Rate 93 H 10/06/18 06:00 Respiratory Rate 20 10/06/18 06:00 Blood Pressure 144/70 10/06/18 06:00 O2 Sat by Pulse Oximetry (%) 98 10/05/18 21:00 Constitutional: Yes: No Distress, Calm Cardiovascular: Yes: Regular Rate and Rhythm Respiratory: Yes: Regular, CTA Bilaterally Gastrointestinal: Yes: Normal Bowel Sounds, Soft Musculoskeletal: Yes: Other Extremities: Yes: Other Neurological: Yes: Alert, Oriented Psychiatric: Yes: Alert, Oriented Labs: CBC, BMP 10/06/18 06:00 10/06/18 06:00 INR, PTT INR 1.10 (0.83-1.09) H 10/04/18 17:00 Assessment/Plan 47 year old female with history of hypertension, diabetes mellitus, recently s/ p hysteroscopic endometrial ablation and bilateral salpingectomy (09/27) was sent from her OBGYN office (Dr. Farooq) with complaints of abdominal pain,, and chills. dm complex cyst ovaries htn fever anemia plan continue current mgmt monitor very carefully gynac on board rest as per the team
--- NOTE | 2018-10-06 12:30 | PN ---
Teaching Attending Note Name of Resident: Matias Recio ATTENDING PHYSICIAN STATEMENT I saw and evaluated the patient. I reviewed the resident's note and discussed the case with the resident. I agree with the resident's findings and plan as documented. SUBJECTIVE:subjective fevers and continues to have RLQ pain. also now reports having diarrhea for the past 3 days. does not recall taking antibiotics surrounding surgery last week. tolerating diet. +urinary frequency. denies CP, chills, N/V/C OBJECTIVE: Last Vital Signs Temp Pulse Resp BP Pulse Ox 99.3 F 93 H 20 144/70 98 10/06/18 06:00 10/06/18 06:00 10/06/18 06:00 10/06/18 06:00 10/05/18 21:00 General NAD CV S1 S2 RRR no murmur/rub/gallop Lungs CTA B/L no wheezing/rales/rhonchi Abdomen soft +RLQ and suprapubic tenderness ASSESSMENT AND PLAN: 47yo F wtih PMH DM and HTN with recent B/L salpingectomy came to the ER after being found febrile and tachycardic at [facility] follow up and found to be septic 1. Sepsis due to presumed endometritis and UTI- UCx with pending organism. continues to have intermittent fevers Tm 102.2. on flagyl and Aztreonam day 2. will f/u cx. check ESR/CRP. if fevers persist will consider repeat imaging for complex mass seen on U/s. cont pain control 2. HTN- currently normotensive. hold other antihypertensives 3. DM- hold oral agents. BGM and ISS 4. microcytic anemia- no signs of bleeding. iron studies pending. Hgb stable. no indication for transfusion 5. DVT ppx- heparin
--- NOTE | 2018-10-06 14:38 | PN ---
Progress Note (SOAP) - Subjective History of Present Illness: Patient reports abdominal pain improved, mild pain on RLQ Has appetite, denies nausea or vomiting Reports did not have appetite on Thursday, was NPO Had diarrhea on Thursday morning, no diarrhea on Thursday evening into Thursday morning Started eating yesterday - had diarrhea again overnight No Vaginal bleeding No dysuria - Current Medications Current Medications: Active Medications Acetaminophen (Tylenol -) 650 mg PO Q4H PRN PRN Reason: FEVER Last Admin: 10/06/18 11:13 Dose: 650 mg Heparin Sodium (Porcine) (Heparin -) 5,000 unit SQ TID [facility] Last Admin: 10/06/18 05:22 Dose: Not Given Metronidazole (Flagyl 500mg Premixed Ivpb -) 500 mg in 100 mls @ 100 mls/hr IVPB Q8H-IV [facility] Last Admin: 10/06/18 10:14 Dose: 100 mls/hr Lactated Ringer's (Lactated Ringers Solution) 1,000 mls @ 100 mls/hr IV ASDIR [facility] Stop: 10/06/18 22:30 Last Admin: 10/06/18 11:05 Dose: 100 mls/hr Aztreonam 1 gm/ Dextrose 50 mls @ 100 mls/hr IVPB Q8H-IV [facility]; Protocol Last Admin: 10/06/18 10:12 Dose: 100 mls/hr Insulin Aspart (Novolog Vial Sliding Scale -) 1 vial SQ ACHS [facility]; Protocol Last Admin: 10/06/18 11:20 Dose: Not Given Metoprolol Tartrate (Lopressor -) 25 mg PO BID [facility] Last Admin: 10/06/18 10:12 Dose: 25 mg - Objective Vital Signs: Vital Signs Temperature 100.1 F H 10/06/18 11:00 Pulse Rate 110 H 10/06/18 10:00 Respiratory Rate 20 10/06/18 10:00 Blood Pressure 159/98 10/06/18 10:00 O2 Sat by Pulse Oximetry (%) 98 10/05/18 21:00 Constitutional: Yes: Well Nourished, No Distress, Calm Cardiovascular: Yes: Regular Rate and Rhythm Respiratory: Yes: Regular, CTA Bilaterally Gastrointestinal: Yes: Soft, Tenderness (right lower quadrant) Genitourinary: No: Vaginal Bleeding Extremities: Yes: WNL Peripheral Pulses WNL: No Neurological: Yes: Alert, Oriented Psychiatric: Yes: Alert, Oriented Labs Lab Results: CBC, BMP 10/06/18 06:00 10/06/18 06:00 Assessment/Plan 47 yo HD # 3 admitted with sepsis / endometritis, possible gastroentertitis 1. On broad spectrum antibiotics (aztreonam/flagyl) Day #3 Tmax 101.6@ 4:30 PM yesterday, temperature elevation today 100.1 @ 11:00 Urine culture, + UTI ID input appreciated 2. Pain - improved, well controlled with PO meds 3. HTN - no meds currently, will monitor 4. DM - on sliding scale 5. Will continue to monitor
[2018-10-06] MEDS ORDERED: INSULIN (NOVOLOG) ASPART 100 UNITS/ML 10ML VIAL ONE (22:32)
[2018-10-07] MEDS ORDERED: AZTREONAM 1 GM VIAL (RESTRICTED TO ID) ONE ×3 (01:22→16:54)
[2018-10-07] MEDS ORDERED: DEXTROSE 5%-WATER - 50 ML IVPB ONE ×3 (01:23→16:54)
[2018-10-07] MEDS: AZTREONAM 1 GM in DEXTROSE 5%-WATER - 50 ML IVPB SCH ×3 (01:35→17:00)
[2018-10-07 04:11] LABS: SERUM IRON SATURATION 3 % (15-55); TOTAL IRON BINDING CAPACITY 358 ug/dL (250-450); UIBC 348 ug/dL (131-425)
[2018-10-07] MEDS: ACETAMINOPHEN 325 MG TABLET (FP) PO PRN (04:54)
[2018-10-07] MEDS: HEPARIN NA (PORCINE) 5,000 UNITS/ML 1ML VIAL SQ SCH ×3 (06:46→21:05)
[2018-10-07] MEDS: INSULIN SLIDING SCALE (NOVOLOG) 1 VIAL SQ SCH ×4 (06:46→21:13)
[2018-10-07 07:35] LABS: HEMATOCRIT 29.5 % (32.4-45.2); HEMOGLOBIN 9.4 GM/dL (10.7-15.3); MCHC 31.8 g/dl (32.0-36.0); MEAN CELL VOLUME 72.3 fl (80-96); MEAN PLT VOLUME 8.1 fl (7.5-11.1); PLATELET COUNT 381 K/MM3 (134-434); RBC 4.09 M/mm3 (3.60-5.2); RDW 17.2 % (11.6-15.6); WHITE BLOOD COUNT 3.2 K/mm3 (4.0-10.0)
--- NOTE | 2018-10-07 10:08 | PN ---
Progress Note (SOAP) - Subjective History of Present Illness: Patient reports continued improvement with abdominal pain Last diarrhea was yesterday morning, no BM since Tolerating regular diet No nausea or vomiting Denies fevers or chills Ambulating, voiding No other complaints - Current Medications Current Medications: Active Medications Acetaminophen (Tylenol -) 650 mg PO Q4H PRN PRN Reason: FEVER Last Admin: 10/07/18 04:54 Dose: 650 mg Heparin Sodium (Porcine) (Heparin -) 5,000 unit SQ TID [facility] Last Admin: 10/07/18 06:46 Dose: Not Given Metronidazole (Flagyl 500mg Premixed Ivpb -) 500 mg in 100 mls @ 100 mls/hr IVPB Q8H-IV [facility] Last Admin: 10/07/18 01:35 Dose: 100 mls/hr Aztreonam 1 gm/ Dextrose 50 mls @ 100 mls/hr IVPB Q8H-IV [facility]; Protocol Last Admin: 10/07/18 01:35 Dose: 100 mls/hr Insulin Aspart (Novolog Vial Sliding Scale -) 1 vial SQ ACHS [facility]; Protocol Last Admin: 10/07/18 06:46 Dose: Not Given Metoprolol Tartrate (Lopressor -) 25 mg PO BID [facility] Last Admin: 10/06/18 22:55 Dose: 25 mg - Objective Vital Signs: Vital Signs Temperature 100.4 F H 10/07/18 06:00 Pulse Rate 97 H 10/07/18 06:00 Respiratory Rate 20 10/07/18 06:00 Blood Pressure 142/79 10/07/18 06:00 O2 Sat by Pulse Oximetry (%) 99 10/06/18 21:00 Constitutional: Yes: Well Nourished, No Distress, Moderate Distress Cardiovascular: Yes: Regular Rate and Rhythm Respiratory: Yes: CTA Bilaterally Gastrointestinal: Yes: Soft, Tenderness (mild, RLQ) Extremities: Yes: WNL Peripheral Pulses WNL: No Edema: No Neurological: Yes: Alert, Oriented Psychiatric: Yes: Alert, Oriented Labs Lab Results: CBC, BMP 10/07/18 07:00 10/06/18 06:00 Assessment/Plan 47 yo HD # 4 admitted with sepsis / endometritis, possible gastroentertitis 1. On broad spectrum antibiotics (aztreonam/flagyl) Day #4 Tmax 100.4 @ 0600 AM today Will speak with ID re medication management 2. Adequate pain control 3. DM - on insulin sliding scale 4. BP well controlled on metoprolol 5. Will continue to monitor
[2018-10-07] MEDS: METOPROLOL TARTRATE 25 MG TABLET (FP) PO SCH ×2 (10:15→21:06)
--- NOTE | 2018-10-07 10:41 | PN ---
Physical Exam: SUBJECTIVE: Patient seen and examined at bedside this morning. Overnight, patient was febrile to Tmax 100.4F. This morning, patient endorses significantly decreased abdominal pain. She has had no diarrhea overnight. She denies subjective fevers or chills, shortness of breath, chest pain, palpitations, nausea, vomiting, dysuria, hematuria, vaginal discharge. OBJECTIVE: Vital Signs Period Temp Pulse Resp BP Sys/Barnard Pulse Ox Last 24 Hr 98.0 F-100.4 F 87-100 17-20 136-152/71-92 99 GENERAL: Awake, alert, and fully oriented, in mild distress. HEAD: Normocephalic, atraumatic. EYES: PERRLA, EOMI, sclera anicteric, conjunctiva clear. EARS, NOSE, THROAT: Oropharynx clear without exudates. Moist mucous membranes. NECK: Supple without lymphadenopathy, or JVD. LUNGS: Good inspiratory effort. Breath sounds equal. CTA B/L. No wheezes, and no crackles. No accessory muscle use. HEART: Regular rate and rhythm, normal S1 and S2 without murmur, rub or gallop. ABDOMEN: Soft, nondistended, diffusely tender to palpation, worst at RLQ. Hypoactive bowel sounds, no guarding, no rebound, no masses. No hepatomegaly palpated or percussed. MUSCULOSKELETAL: Normal range of motion at all joints. No bony deformities or tenderness. UPPER EXTREMITIES: 2+ radial pulses, warm, well-perfused. LOWER EXTREMITIES: 2+ dorsalis pedis pulses, warm, well-perfused. No calf tenderness. No peripheral edema bilaterally. NEUROLOGICAL: Cranial nerves II-XII intact. Normal speech. No gross focal deficits. PSYCHIATRIC: Cooperative. Good eye contact. Appropriate mood and affect upon my encounter. SKIN: Warm, dry. Abdominal surgical incisions noted clean, dry, intact, well healing. Laboratory Results - last 24 hr 10/06/18 10/06/18 10/06/18 06:00 06:00 11:16 WBC RBC Hgb Hct MCV MCH MCHC RDW Plt Count MPV ESR Sodium 136 Potassium 3.5 Chloride 100 Carbon Dioxide 29 Anion Gap 7 L BUN 7 Creatinine 0.7 Creat Clearance w eGFR 90.49 POC Glucometer 137 Random Glucose 153 H Calcium 8.5 Iron 10 L TIBC 358 Iron Saturation 3 L Ferritin 25.7 Total Bilirubin 0.2 AST 7 L ALT 17 Alkaline Phosphatase 58 C-Reactive Protein 6.7 H Total Protein 7.0 Albumin 3.1 L 10/06/18 10/06/18 10/06/18 14:05 16:57 22:54 WBC RBC Hgb Hct MCV MCH MCHC RDW Plt Count MPV ESR 42 H Sodium Potassium Chloride Carbon Dioxide Anion Gap BUN Creatinine Creat Clearance w eGFR POC Glucometer 164 172 Random Glucose Calcium Iron TIBC Iron Saturation Ferritin Total Bilirubin AST ALT Alkaline Phosphatase C-Reactive Protein Total Protein Albumin 10/07/18 10/07/18 10/07/18 06:43 07:00 07:00 WBC 3.2 L RBC 4.09 Hgb 9.4 L Hct 29.5 L MCV 72.3 L MCH 23.0 L MCHC 31.8 L RDW 17.2 H Plt Count 381 MPV 8.1 ESR Sodium Potassium Chloride Carbon Dioxide Anion Gap BUN Creatinine Creat Clearance w eGFR POC Glucometer 127 Random Glucose Calcium Iron TIBC Iron Saturation Ferritin Total Bilirubin AST ALT Alkaline Phosphatase C-Reactive Protein 6.2 H Total Protein Albumin 10/07/18 07:00 WBC RBC Hgb Hct MCV MCH MCHC RDW Plt Count MPV ESR 40 H Sodium Potassium Chloride Carbon Dioxide Anion Gap BUN Creatinine Creat Clearance w eGFR POC Glucometer Random Glucose Calcium Iron TIBC Iron Saturation Ferritin Total Bilirubin AST ALT Alkaline Phosphatase C-Reactive Protein Total Protein Albumin Active Medications Generic Name Dose Route Start Last Admin Trade Name Freq PRN Reason Stop Dose Admin Acetaminophen 650 mg 10/05/18 12:30 10/07/18 04:54 Tylenol - PO 650 mg Q4H PRN Administration FEVER Heparin Sodium (Porcine) 5,000 unit 10/05/18 22:00 10/07/18 06:46 Heparin - SQ Not Given TID [facility] Metronidazole 500 mg in 100 mls @ 100 mls/hr 10/04/18 22:30 10/07/18 10:15 Flagyl 500mg Premixed Ivpb - IVPB 100 mls/hr Q8H-IV [facility] Administration Aztreonam 1 gm/ Dextrose 50 mls @ 100 mls/hr 10/05/18 14:30 10/07/18 10:15 IVPB 100 mls/hr Q8H-IV [facility] Administration Protocol Insulin Aspart 1 vial 10/05/18 07:00 10/07/18 06:46 Novolog Vial Sliding Scale - SQ Not Given ACHS [facility] Protocol Metoprolol Tartrate 25 mg 10/05/18 22:00 10/07/18 10:15 Lopressor - PO 25 mg BID [facility] Administration IMAGING -CT abdomen and pelvis revealed nonspecific distention of ednometrial cavity, with 2 x 1 x1cm subcutaneous fluid focus abutting right anterior pelvic wall. -Transvaginal US shows bilateral ovarian cysts, complex endometrial fluid. -Abdominal US shows complex density within right lower abdomen 2.5 x 1.5 cm concerning for hematoma vs. abscess. ASSESSMENT/PLAN: Patient is a 47 year old female with history of hypertension, diabetes mellitus , recently s/p hysteroscopic endometrial ablation and bilateral salpingectomy ( 09/27) was sent from her OBGYN office (Dr. Farooq) with complaints of abdominal pain, subjective fevers, and chills. Sepsis secondary to endometritis -Patient is s/p hysteroscopic endometrial ablation and bilateral salpingectomy -Flagyl 500mg IV Q8 hours (day #3) -Aztreonam 1 gram IV Q8 hours (day #3) -Acetaminophen 650mg PO Q4 hours PRN -ID consult (Dr. Messina) appreciated -Blood cultures negative for growth at 48 hours -Urine cultures growing Group B streptococcus, lactose fermenting gram negative bacilli. Follow sensitivities -OBGYN recommendations (Dr. Farooq) appreciated. Diabetes mellitus -Insulin sliding scale ACHS -Fingerstick blood glucose monitoring [facility] Hypertension -Metoprolol 25mg PO BID -Lisinopril 20mg PO daily -Follow vital signs closely Microcytic anemia -Stable- likely secondary to iron deficiency anemia. -Follow Fe 10, TIBC 358, Ferritin 25.7, iron saturation 3 -Follow CBC FEN -No IV fluids -Follow CMP -Diabetic diet Prophylaxis -Heparin 5000u subq TID Disposition: We will continue to follow the patient. Thank you for this consultative opportunity. Visit type - Emergency Visit Emergency Visit: Yes ED Registration Date: 10/04/18 Care time: The patient presented to the Emergency Department on the above date and was hospitalized for further evaluation of their emergent condition. - New Patient This patient is new to me today: No - Critical Care Critical Care patient: No - Discharge Referral Referred to [facility] Med P.C.: No
--- NOTE | 2018-10-07 11:52 | PN ---
Teaching Attending Note Name of Resident: Matias Recio ATTENDING PHYSICIAN STATEMENT I saw and evaluated the patient. I reviewed the resident's note and discussed the case with the resident. I agree with the resident's findings and plan as documented. SUBJECTIVE:much better today. pain only on palpation. tolerating diet. denies Cp , SOB, fever, chills, N/V/C/D OBJECTIVE: Last Vital Signs Temp Pulse Resp BP Pulse Ox 98.0 F 100 H 17 137/92 99 10/07/18 10:10/07/18 10:10/07/18 10:10/07/18 10:10/06/18 21:00 General NAD CV S1 S2 RRR no murmur/rub/gallop Lungs CTA B/L no wheezing/rales/rhonchi Abdomen soft minimal RLQ tenderness no suprapubic. no rebound or guarding ASSESSMENT AND PLAN: 47yo F wtih PMH DM and HTN with recent B/L salpingectomy came to the ER after being found febrile and tachycardic at [facility] follow up and found to be septic 1. Sepsis due to presumed endometritis and UTI- UCx showing low growth of Group B. Tm 100.4. overall fever curve lower. would cont with flagyl adn aztreonam for another 24H and if remains afebrile can likely transition to po. can d.c IVF. cont pain control 2. HTN-above goal. will re-start lisinopril. hold diuretic 3. DM- hold oral agents. BGM and ISS 4. microcytic anemia- no signs of bleeding. iron studies pending. Hgb stable. no indication for transfusion 5. DVT ppx- heparin 6. Thank you for this consultative opportunity. Will follow this patient with you
[2018-10-07] MEDS: LISINOPRIL 20 MG TABLET (FP) PO SCH (12:29)
--- NOTE | 2018-10-07 13:24 | PN ---
Progress Note, Physician - Current Medication List Current Medications: Active Medications Acetaminophen (Tylenol -) 650 mg PO Q4H PRN PRN Reason: FEVER Last Admin: 10/07/18 04:54 Dose: 650 mg Heparin Sodium (Porcine) (Heparin -) 5,000 unit SQ TID [facility] Last Admin: 10/07/18 06:46 Dose: Not Given Metronidazole (Flagyl 500mg Premixed Ivpb -) 500 mg in 100 mls @ 100 mls/hr IVPB Q8H-IV [facility] Last Admin: 10/07/18 10:15 Dose: 100 mls/hr Aztreonam 1 gm/ Dextrose 50 mls @ 100 mls/hr IVPB Q8H-IV [facility]; Protocol Last Admin: 10/07/18 10:15 Dose: 100 mls/hr Insulin Aspart (Novolog Vial Sliding Scale -) 1 vial SQ ACHS [facility]; Protocol Last Admin: 10/07/18 11:50 Dose: 2 units Lisinopril (Prinivil) 20 mg PO DAILY [facility] Last Admin: 10/07/18 12:29 Dose: 20 mg Metoprolol Tartrate (Lopressor -) 25 mg PO BID [facility] Last Admin: 10/07/18 10:15 Dose: 25 mg - Objective Vital Signs: Vital Signs Temperature 98.0 F 10/07/18 10:09 Pulse Rate 100 H 10/07/18 10:09 Respiratory Rate 17 10/07/18 10:09 Blood Pressure 137/92 10/07/18 10:09 O2 Sat by Pulse Oximetry (%) 99 10/06/18 21:00 Labs: CBC, BMP 10/07/18 07:00 10/06/18 06:00 INR, PTT INR 1.10 (0.83-1.09) H 10/04/18 17:00
[2018-10-08] MEDS ORDERED: AZTREONAM 1 GM VIAL (RESTRICTED TO ID) ONE ×3 (00:42→17:24)
[2018-10-08] MEDS ORDERED: DEXTROSE 5%-WATER - 50 ML IVPB ONE ×3 (00:42→17:25)
[2018-10-08] MEDS ORDERED: MELATONIN 5 MG TABLETS PO ONE (01:49)
[2018-10-08] MEDS: AZTREONAM 1 GM in DEXTROSE 5%-WATER - 50 ML IVPB SCH ×4 (02:20→17:47)
[2018-10-08] MEDS: HEPARIN NA (PORCINE) 5,000 UNITS/ML 1ML VIAL SQ SCH ×3 (05:23→23:00)
[2018-10-08] MEDS: INSULIN SLIDING SCALE (NOVOLOG) 1 VIAL SQ SCH ×4 (06:08→23:32)
--- NOTE | 2018-10-08 07:13 | PN ---
Progress Note (short form) - Note Progress Note: no c/o , no acute event over night, afebrile Last Vital Signs Temp Pulse Resp BP Pulse Ox 97.9 F 92 H 20 145/82 100 10/08/18 06:20 10/08/18 06:20 10/08/18 06:20 10/08/18 06:20 10/07/18 09:00 CBC, BMP 10/07/18 07:00 10/06/18 06:00 abdomen soft, no cva , mild supra pubic tenderness no vaginal discharge or odor no calf tenderness urine GBS, gm negative bacilli impression endometritis r/o UTI, afebrile plan cont. iv antibiotics monitor temp[
--- NOTE | 2018-10-08 08:12 | PN ---
Physical Exam: SUBJECTIVE: Patient seen and examined at bedside. Patient afebrile overnight. She endorses significantly decreased abdominal pain. Paitent denies subjective fevers or chills, shortness of breath, chest pain, palpitations, nausea, vomiting, dysuria, hematuria, vaginal discharge. OBJECTIVE: Vital Signs Period Temp Pulse Resp BP Sys/Barnard Pulse Ox Last 24 Hr 97.9 F-100.2 F 90-100 17-20 132-153/66-92 100 GENERAL: Awake, alert, and fully oriented, in mild distress. HEAD: Normocephalic, atraumatic. EYES: PERRLA, EOMI, sclera anicteric, conjunctiva clear. EARS, NOSE, THROAT: Oropharynx clear without exudates. Moist mucous membranes. NECK: Supple without lymphadenopathy, or JVD. LUNGS: Good inspiratory effort. Breath sounds equal. CTA B/L. No wheezes, and no crackles. No accessory muscle use. HEART: Regular rate and rhythm, normal S1 and S2 without murmur, rub or gallop. ABDOMEN: Soft, nondistended, minimally tender to palpation, worst at RLQ. Hypoactive bowel sounds, no guarding, no rebound, no masses. No hepatomegaly palpated or percussed. MUSCULOSKELETAL: Normal range of motion at all joints. No bony deformities or tenderness. UPPER EXTREMITIES: 2+ radial pulses, warm, well-perfused. LOWER EXTREMITIES: 2+ dorsalis pedis pulses, warm, well-perfused. No calf tenderness. No peripheral edema bilaterally. NEUROLOGICAL: Cranial nerves II-XII intact. Normal speech. No gross focal deficits. PSYCHIATRIC: Cooperative. Good eye contact. Appropriate mood and affect upon my encounter. SKIN: Warm, dry. Abdominal surgical incisions noted clean, dry, intact, well healing. Laboratory Results - last 24 hr 10/07/18 10/07/18 10/07/18 07:00 07:00 11:48 ESR 40 H POC Glucometer 164 C-Reactive Protein 6.2 H 10/07/18 10/07/18 10/08/18 16:51 21:10 06:07 ESR POC Glucometer 154 151 272 C-Reactive Protein Active Medications Generic Name Dose Route Start Last Admin Trade Name Freq PRN Reason Stop Dose Admin Acetaminophen 650 mg 10/05/18 12:30 10/07/18 04:54 Tylenol - PO 650 mg Q4H PRN Administration FEVER Heparin Sodium (Porcine) 5,000 unit 10/05/18 22:00 10/08/18 05:23 Heparin - SQ Not Given TID JAIDEN Metronidazole 500 mg in 100 mls @ 100 mls/hr 10/04/18 22:30 10/08/18 03:05 Flagyl 500mg Premixed Ivpb - IVPB 100 mls/hr Q8H-IV JAIDEN Administration Aztreonam 1 gm/ Dextrose 50 mls @ 100 mls/hr 10/05/18 14:30 10/08/18 02:20 IVPB 100 mls/hr Q8H-IV JAIDEN Administration Protocol Insulin Aspart 1 vial 10/05/18 07:00 10/08/18 06:08 Novolog Vial Sliding Scale - SQ 6 units ACHS JAIDEN Administration Protocol Lisinopril 20 mg 10/07/18 12:00 10/07/18 12:29 Prinivil PO 20 mg DAILY JAIDEN Administration Metoprolol Tartrate 25 mg 10/05/18 22:00 10/07/18 21:06 Lopressor - PO 25 mg BID JAIDEN Administration IMAGING -CT abdomen and pelvis revealed nonspecific distention of ednometrial cavity, with 2 x 1 x1cm subcutaneous fluid focus abutting right anterior pelvic wall. -Transvaginal US shows bilateral ovarian cysts, complex endometrial fluid. -Abdominal US shows complex density within right lower abdomen 2.5 x 1.5 cm concerning for hematoma vs. abscess. ASSESSMENT/PLAN: Patient is a 47 year old female with history of hypertension, diabetes mellitus , recently s/p hysteroscopic endometrial ablation and bilateral salpingectomy ( 09/27) was sent from her OBGYN office (Dr. Farooq) with complaints of abdominal pain, subjective fevers, and chills. Sepsis secondary to endometritis -Patient is s/p hysteroscopic endometrial ablation and bilateral salpingectomy -Aztreonam 1 gram IV Q8 hours (day #4) -Flagyl discontinued with ID recommendations. -Begin Vancomycin 1250mg IV daily -Acetaminophen 650mg PO Q4 hours PRN -ID consult (Dr. Messina) appreciated -Blood cultures negative for growth -Urine cultures growing Group B streptococcus, lactose fermenting gram negative bacilli. -OBGYN recommendations (Dr. Webster) appreciated. Diabetes mellitus -Insulin sliding scale ACHS -Fingerstick blood glucose monitoring ACHS Hypertension -Metoprolol 25mg PO BID -Lisinopril 20mg PO daily -Follow vital signs closely Microcytic anemia -Stable- likely secondary to iron deficiency anemia. -Fe 10, TIBC 358, Ferritin 25.7, iron saturation 3 -Begin Venofer 200mg IV. Patient will require iron supplementation as outpatient. FEN -No IV fluids -Follow CMP -Diabetic diet Prophylaxis -Heparin 5000u subq TID Disposition: We will continue to follow the patient. Thank you for this consultative opportunity. Visit type - Emergency Visit Emergency Visit: Yes ED Registration Date: 10/04/18 Care time: The patient presented to the Emergency Department on the above date and was hospitalized for further evaluation of their emergent condition. - New Patient This patient is new to me today: No - Critical Care Critical Care patient: No - Discharge Referral Referred to [facility] Med P.C.: No
[2018-10-08] MEDS: METOPROLOL TARTRATE 25 MG TABLET (FP) PO SCH ×3 (10:52→23:27)
[2018-10-08] MEDS: LISINOPRIL 20 MG TABLET (FP) PO SCH ×2 (10:53→11:22)
--- NOTE | 2018-10-08 11:02 | PN ---
Progress Note, Physician History of Present Illness: patient spiking low grade fever again no complaints - Current Medication List Current Medications: Active Medications Acetaminophen (Tylenol -) 650 mg PO Q4H PRN PRN Reason: FEVER Last Admin: 10/07/18 04:54 Dose: 650 mg Heparin Sodium (Porcine) (Heparin -) 5,000 unit SQ TID [facility] Last Admin: 10/08/18 05:23 Dose: Not Given Metronidazole (Flagyl 500mg Premixed Ivpb -) 500 mg in 100 mls @ 100 mls/hr IVPB Q8H-IV JAIDEN Last Admin: 10/08/18 10:52 Dose: Not Given Aztreonam 1 gm/ Dextrose 50 mls @ 100 mls/hr IVPB Q8H-IV [facility]; Protocol Last Admin: 10/08/18 10:52 Dose: Not Given Insulin Aspart (Novolog Vial Sliding Scale -) 1 vial SQ ACHS [facility]; Protocol Last Admin: 10/08/18 06:08 Dose: 6 units Lisinopril (Prinivil) 20 mg PO DAILY [facility] Last Admin: 10/08/18 10:53 Dose: Not Given Metoprolol Tartrate (Lopressor -) 25 mg PO BID [facility] Last Admin: 10/08/18 10:52 Dose: Not Given - Objective Vital Signs: Vital Signs Temperature 98.5 F 10/08/18 09:30 Pulse Rate 84 10/08/18 09:30 Respiratory Rate 20 10/08/18 09:30 Blood Pressure 131/81 10/08/18 09:30 O2 Sat by Pulse Oximetry (%) 100 10/07/18 09:00 Constitutional: Yes: No Distress, Calm Cardiovascular: Yes: Regular Rate and Rhythm Respiratory: Yes: Regular, CTA Bilaterally Gastrointestinal: Yes: Normal Bowel Sounds, Soft Musculoskeletal: Yes: WNL Extremities: Yes: WNL Neurological: Yes: Alert, Oriented Psychiatric: Yes: Alert, Oriented Labs: CBC, BMP 10/07/18 07:00 10/06/18 06:00 INR, PTT INR 1.10 (0.83-1.09) H 10/04/18 17:00 Assessment/Plan 47 year old female with history of hypertension, diabetes mellitus, recently s/ p hysteroscopic endometrial ablation and bilateral salpingectomy (09/27) was sent from her OBGYN office (Dr. Farooq) with complaints of abdominal pain,, and chills. dm complex cyst ovaries htn fever anemia plan continue current mgmt awaiting for identification of the organism growing strp now second organism awaited will add vanco to regimen consider repeating ct scan
[2018-10-08] MEDS ORDERED: VANCOMYCIN HCL 1,250 MG in DEXTROSE 5%-WATER - 250 ML IVPB SCH (11:15)
[2018-10-08] MEDS ORDERED: PT OWN MED DRAWER 7, Y5N ONE (12:21)
[2018-10-08] MEDS ORDERED: INSULIN (NOVOLOG) ASPART 100 UNITS/ML 10ML VIAL ONE (12:39)
[2018-10-08] MEDS ORDERED: MAGNESIUM OXIDE 400 MG TABLET (FP) PO ONE ×2 (12:45→18:00)
[2018-10-08] MEDS ORDERED: IRON SUCROSE INJECTION 200 MG in SODIUM CHLORIDE 90 ML IVPB ONE (12:45)
--- NOTE | 2018-10-08 12:46 | PN ---
Teaching Attending Note Name of Resident: Matias Recio ATTENDING PHYSICIAN STATEMENT I saw and evaluated the patient. I reviewed the resident's note and discussed the case with the resident. I agree with the resident's findings and plan as documented. SUBJECTIVE: OBJECTIVE: Last Vital Signs Temp Pulse Resp BP Pulse Ox 98.5 F 84 20 131/81 100 10/08/18 09:30 10/08/18 09:30 10/08/18 09:30 10/08/18 09:30 10/07/18 09:00 General NAD CV S1 S2 RRR no murmur/rub/gallop Lungs CTA B/L no wheezing/rales/rhonchi Abdomen soft NT/ND. no rebound or guarding ASSESSMENT AND PLAN: 47yo F wtih PMH DM and HTN with recent B/L salpingectomy came to the ER after being found febrile and tachycardic at [facility] follow up and found to be septic 1. Sepsis due to presumed endometritis and UTI- UCx showing low growth of Group B. Tm 100.2. no longer tender.on flagyl and aztreonam day 4. would repeat CRP to evaluate if improving. if remains afebrile can consider switching to po tomorrow. cont pain control 2. HTN-improved. cont medications 3. DM- hold oral agents. BGM and ISS 4. Iron def anemia- iron sat<3 and low fe stores. will start venofer. iron supplementation on discharge. repeat iron studies in 3 months. 5. hypomagnesmia- Mg po 6. DVT ppx- heparin 7. Thank you for this consultative opportunity. Will follow this patient with you
[2018-10-09] MEDS ORDERED: AZTREONAM 1 GM VIAL (RESTRICTED TO ID) ONE ×2 (01:38→10:05)
[2018-10-09] MEDS ORDERED: DEXTROSE 5%-WATER - 50 ML IVPB ONE ×2 (01:39→10:06)
[2018-10-09] MEDS: AZTREONAM 1 GM in DEXTROSE 5%-WATER - 50 ML IVPB SCH ×2 (02:54→10:52)
[2018-10-09] MEDS: HEPARIN NA (PORCINE) 5,000 UNITS/ML 1ML VIAL SQ SCH (05:57)
[2018-10-09] MEDS: INSULIN SLIDING SCALE (NOVOLOG) 1 VIAL SQ SCH (06:30)
[2018-10-09 07:40] VITALS: TEMP 98
--- NOTE | 2018-10-09 10:41 | PN ---
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 no pain, no dysuria, afebrile CBC, BMP 10/07/18 07:00 10/06/18 06:00 Last Vital Signs Temp Pulse Resp BP Pulse Ox 98 F 79 20 140/84 98 10/09/18 06:00 10/09/18 06:00 10/09/18 06:00 10/09/18 06:00 10/08/18 21:00 abdomen soft, no distension, no cva no vaginal bleeding , no odor no calf tenderness impression afebrile .asymptomatic . plan if ok with ID can be d/c home with po antibiotics folow up office 1 week
[2018-10-09] MEDS: METOPROLOL TARTRATE 25 MG TABLET (FP) PO SCH (10:52)
[2018-10-09] MEDS: LISINOPRIL 20 MG TABLET (FP) PO SCH (10:52)
[2018-10-09 11:00] VITALS: BP 146/87; PULSE 82
--- NOTE | 2018-10-09 11:26 | PN ---
Progress Note (short form) - Note Progress Note: asymptomatic. denies Cp, SOB, fever, chills, N/V/C/D or abdominal pain Current Medications Generic Name Dose Route Start Last Admin Trade Name Mayda PRN Reason Stop Dose Admin Acetaminophen 650 mg 10/05/18 12:30 10/07/18 04:54 Tylenol - PO 650 mg Q4H PRN Administration FEVER Heparin Sodium (Porcine) 5,000 unit 10/05/18 22:00 10/09/18 05:57 Heparin - SQ Not Given TID JAIDEN Aztreonam 1 gm/ Dextrose 50 mls @ 100 mls/hr 10/05/18 14:30 10/09/18 10:52 IVPB 100 mls/hr Q8H-IV JAIDEN Administration Protocol Vancomycin HCl 1,250 mg/ 250 mls @ 250 mls/2 hr 10/08/18 11:15 10/08/18 13:15 Dextrose IVPB 250 mls/2 hr Q24H JAIDEN Administration Protocol Insulin Aspart 1 vial 10/05/18 07:00 10/09/18 06:30 Novolog Vial Sliding Scale - SQ 2 units ACHS JAIDEN Administration Protocol Lisinopril 20 mg 10/07/18 12:00 10/09/18 10:52 Prinivil PO 20 mg DAILY JAIDEN Administration Metoprolol Tartrate 25 mg 10/05/18 22:00 10/09/18 10:52 Lopressor - PO 25 mg BID JAIDEN Administration Last Vital Signs Temp Pulse Resp BP Pulse Ox 98 F 82 20 146/87 98 10/09/18 10:00 10/09/18 10:00 10/09/18 10:00 10/09/18 10:00 10/09/18 09:00 General NAD CV S1 S2 RRR no murmur/rub/gallop Lungs CTA B/L no wheezing/rales/rhonchi Abdomen soft NT/ND. no rebound or guarding CBCD WBC 3.2 K/mm3 (4.0-10.0) L 10/07/18 07:00 RBC 4.09 M/mm3 (3.60-5.2) 10/07/18 07:00 Hgb 9.4 GM/dL (10.7-15.3) L 10/07/18 07:00 Hct 29.5 % (32.4-45.2) L 10/07/18 07:00 MCV 72.3 fl (80-96) L 10/07/18 07:00 MCHC 31.8 g/dl (32.0-36.0) L 10/07/18 07:00 RDW 17.2 % (11.6-15.6) H 10/07/18 07:00 Plt Count 381 K/MM3 (134-434) 10/07/18 07:00 MPV 8.1 fl (7.5-11.1) 10/07/18 07:00 CMP Sodium 136 mmol/L (136-145) 10/06/18 06:00 Potassium 3.5 mmol/L (3.5-5.1) 10/06/18 06:00 Chloride 100 mmol/L (98-107) 10/06/18 06:00 Carbon Dioxide 29 mmol/L (21-32) 10/06/18 06:00 Anion Gap 7 MMOL/L (8-16) L 10/06/18 06:00 BUN 7 mg/dL (7-18) 10/06/18 06:00 Creatinine 0.7 mg/dL (0.55-1.3) 10/06/18 06:00 Creat Clearance w eGFR 90.49 (>60) 10/06/18 06:00 Calcium 8.5 mg/dL (8.5-10.1) 10/06/18 06:00 Total Bilirubin 0.2 mg/dL (0.2-1) 10/06/18 06:00 AST 7 U/L (15-37) L 10/06/18 06:00 ALT 17 U/L (13-61) 10/06/18 06:00 Alkaline Phosphatase 58 U/L (45-117) 10/06/18 06:00 Total Protein 7.0 g/dl (6.4-8.2) 10/06/18 06:00 Albumin 3.1 g/dl (3.4-5.0) L 10/06/18 06:00 Microbiology 10/05/18 08:30 Blood - Peripheral Venous Blood Culture - Preliminary NO GROWTH OBTAINED AFTER 96 HOURS, INCUBATION TO CONTINUE FOR 1 DAYS. 10/05/18 08:30 Blood - Peripheral Venous Blood Culture - Preliminary NO GROWTH OBTAINED AFTER 96 HOURS, INCUBATION TO CONTINUE FOR 1 DAYS. 10/04/18 20:08 Urine - Urine Clean Catch Urine Culture - Final Strep Agalactiae Group B Lactose Fermenting Neg Bacilli ASSESSMENT AND PLAN: 47yo F wtih PMH DM and HTN with recent B/L salpingectomy came to the ER after being found febrile and tachycardic at [facility] follow up and found to be septic 1. Sepsis due to presumed endometritis and UTI-symptoms resolved. afebrile >24H , CRP trending down. on flagyl and aztreonam day 5. can switch to levaquin x7 days. would recommend bacid while on abx to prevent diarrhea. F/u with [facility] as outpatient. 2. HTN-improved. cont medications 3. DM- hold oral agents. BGM and ISS 4. Iron def anemia- iron sat<3 and low fe stores. venofer x1. iron supplementation on discharge. repeat iron studies in 3 months. 5. hypomagnesmia- resolved 6. DVT ppx- heparin 7. Thank you for this consultative opportunity. no medical objection to discharge at this time. please re-consult if needed Visit type - Emergency Visit Emergency Visit: Yes ED Registration Date: 10/04/18 Care time: The patient presented to the Emergency Department on the above date and was hospitalized for further evaluation of their emergent condition. - New Patient This patient is new to me today: No - Critical Care Critical Care patient: No - Discharge Referral Referred to [facility] Med P.C.: No
--- NOTE | 2018-10-09 11:47 | PN ---
Progress Note, Physician History of Present Illness: patient stable no new issues remained afebrile - Current Medication List Current Medications: Active Medications Acetaminophen (Tylenol -) 650 mg PO Q4H PRN PRN Reason: FEVER Last Admin: 10/07/18 04:54 Dose: 650 mg Heparin Sodium (Porcine) (Heparin -) 5,000 unit SQ TID [facility] Last Admin: 10/09/18 05:57 Dose: Not Given Aztreonam 1 gm/ Dextrose 50 mls @ 100 mls/hr IVPB Q8H-IV JAIDEN; Protocol Last Admin: 10/09/18 10:52 Dose: 100 mls/hr Vancomycin HCl 1,250 mg/ (Dextrose) 250 mls @ 250 mls/2 hr IVPB Q24H [facility]; Protocol Last Admin: 10/08/18 13:15 Dose: 250 mls/2 hr Insulin Aspart (Novolog Vial Sliding Scale -) 1 vial SQ ACHS [facility]; Protocol Last Admin: 10/09/18 06:30 Dose: 2 units Lisinopril (Prinivil) 20 mg PO DAILY [facility] Last Admin: 10/09/18 10:52 Dose: 20 mg Metoprolol Tartrate (Lopressor -) 25 mg PO BID [facility] Last Admin: 10/09/18 10:52 Dose: 25 mg - Objective Vital Signs: Vital Signs Temperature 98 F 10/09/18 10:00 Pulse Rate 82 10/09/18 10:00 Respiratory Rate 20 10/09/18 10:00 Blood Pressure 146/87 10/09/18 10:00 O2 Sat by Pulse Oximetry (%) 98 10/09/18 09:00 Constitutional: Yes: No Distress, Calm Cardiovascular: Yes: Regular Rate and Rhythm Respiratory: Yes: Regular, CTA Bilaterally Gastrointestinal: Yes: Normal Bowel Sounds, Soft Musculoskeletal: Yes: WNL Extremities: Yes: WNL Neurological: Yes: Alert, Oriented Psychiatric: Yes: Alert, Oriented Labs: CBC, BMP 10/07/18 07:00 10/06/18 06:00 INR, PTT INR 1.10 (0.83-1.09) H 10/04/18 17:00 Assessment/Plan 47 year old female with history of hypertension, diabetes mellitus, recently s/ p hysteroscopic endometrial ablation and bilateral salpingectomy (09/27) was sent from her OBGYN office (Dr. Farooq) with complaints of abdominal pain,, and chills. dm complex cyst ovaries htn fever anemia plan patients organism still not back yet patient wants to go home will not wait we can switch her to levaquin 750 mg daily for 7 days then repeat a ct scan as out patient for resolution of the collection
== END 2018-10-09 15:43 | disposition home or self-care (01) | DRG 862 ==
LOC: JER 15:46 → JERBED 20:21 → OBSVTOIN 20:21 → J5S 10-05 14:13
PROVIDERS: ADMIT Obstetrics & Gynecology; ATTEND Obstetrics & Gynecology
DX: T81.49XA Infection following a procedure, other surgical site, initial encounter (principal); A41.9 Sepsis, unspecified organism; L02.211 Cutaneous abscess of abdominal wall; E87.1 Hypo-osmolality and hyponatremia; N39.0 Urinary tract infection, site not specified; R50.9 Fever, unspecified; R00.0 Tachycardia, unspecified; N83.209 Unspecified ovarian cyst, unspecified side; I10 Essential (primary) hypertension; E11.9 Type 2 diabetes mellitus without complications; T78.3XXA Angioneurotic edema, initial encounter; D57.3 Sickle-cell trait; J30.9 Allergic rhinitis, unspecified; N71.9 Inflammatory disease of uterus, unspecified; K52.9 Noninfective gastroenteritis and colitis, unspecified; D50.9 Iron deficiency anemia, unspecified; B95.1 Streptococcus, group B, as the cause of diseases classified elsewhere; E83.42 Hypomagnesemia; Y83.8 Other surgical procedures as the cause of abnormal reaction of the patient, or of later complication, without mention of misadventure at the time of the procedure; Z88.0 Allergy status to penicillin
CPT/HCPCS: 36415; 71045-TC-FY; 74177-TC; 76705-TC; 76830-TC; 80048; 80053; 81003; 82728; 82962; 83540; 83550; 83605; 83690; 83735; 84100; 84703; 85025; 85027; 85610; 85651; 85730; 86140; 86850; 86900; 86901; 87040; 87086; 87186; 93005; 93010; 99283-25; J0131; J1644; J1756; J7030